=== PATIENT | male | born 1980 | race African-American/Black ===

== ENCOUNTER 2022-12-31 20:09 | Inpatient (IN) | payer OTHER, SELFPAY ==
[2022-12-31 20:34] VITALS: BP 125/74; PULSE 74; RESP 16; TEMP 36.1; O2SAT 99
[2022-12-31] MEDS: hydrOXYzine HCL 50 MG TABLET PO (21:24)
[2022-12-31] MEDS: Melatonin 3 MG TABLET 6 MG PO (21:25)
[2022-12-31 21:59] VITALS: BMI 27.0
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
[2023-01-01 08:00] VITALS: BP 117/64; PULSE 68; RESP 18; TEMP 36.5; O2SAT 99
[2023-01-01] MEDS: hydrOXYzine HCL 50 MG TABLET PO ×2 (09:08→20:18)
--- NOTE | 2023-01-01 09:55 | P.HPPS_ITS ---
HPI Date of Service: 01/01/23 Chief Complaint: AH Sources of Information: patient interviewed, chart reviewed and crisis/core team assessment reviewed HPI Subjective Notes: Lopez Warning and Conditional Voluntary Narrative: Patient is a 42-year-old male with history of undiagnosed bipolar disorder, PTSD and occasional substance abuse who presents for auditory hallucinations that started 7 months ago and have been steadily worsening to the point where patient has become suicidal. Patient reports that auditory hallucinations started for t he 1st time about 7 months ago but were minimal; however they have been increasing and over the past couple months of gotten much worse. Patient has been hesitant to tell anyone, feeling embarrassed. 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 Patient finally told his mother who reports family history of AH. Patient reports he rarely uses cocaine but recently did so just to get relief; admitted to superficial self-harm 1 time as a coping tool. Patient knows the voices are not real and wants help and very open to medication. Patient also has a history of struggling on/off with depression however he denies that AH started during any depressive episode and are unrelated. Patient endorses hypomanic episodes which are also independent of AH; they occur about twice a month, last about 3-4 days during which time he gets little sleep, is hyperactive (though he remains very efficient with work), talking fast, racing mind, hypersexual and spending money on things he does not need, such as clothes/jewelry which he ends up returning; he says he has not slept much in the past 5 days however he says he is very tired and wants to sleep and says this back out of insomnia is not typical for his manic episodes. Patient has a history of childhood trauma but says he has worked through his PTSD in therapy. Only occasionally alcohol use. 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 Patient was dating a woman who moved to [place] and never told him she was ; about 5 years ago she developed end-stage breast cancer, returned with their 15-year-old son whom patient met for the 1st time. They ; she and he has been raising his son since. Son recently moved back to [place] Substance History: History of substance abuse and detox x1 at [facility]; patient reports he only seldom uses alcohol or cocaine; smokes cannabis 1 to 2 times a week Trauma History: Childhood trauma Diagnostics Vital Signs (24Hr): Vital Signs - 24 hr 12/31/22 20:34 01/01/23 08:00 Temperature 97 F 97.7 F Pulse Rate 74 68 Respiratory Rate 16 18 Blood Pressure 125/74 117/64 Pulse Oximetry 99 99 Oxygen Delivery Method Room Air Room Air BMI result Body Mass Index 27.0 Labs 01/01/23 09:12 Meds/Allergies Allergies Allergies Allergy/AdvReac Type Severity Reaction Status Date / Time naltrexone Allergy Hives Verified 12/31/22 21:26 Mental Status Exam Mental Status Exam Narrative: Pt is alert and oriented; behavior is cooperative, friendly and calm; patient is in emotional distress; dressed in hospital attire, well groomed; mood is described as irritable and affect constricted; eye contact appropriate; Speech is normal rate, volume and prosody and not pressured; no psychomotor agitation/retardation present; thought process is organized and goal directed; Thought content is on tx and dealing with AH; otherwise pertinent to relevant topics and without any delusional content, paranoid ideations or grandiosity; p ositive for SI due to no relief from AH; no HI. Positive for AH Patients insight and judgment appear impaired Assessment & Plan Assessment & Plan (1) Schizoaffective disorder: Status: Acute Code(s): F25.9 - Schizoaffective disorder, unspecified Plan Patient is a 42-year-old male with history of undiagnosed bipolar disorder, PTSD and occasional substance abuse who presents for auditory hallucinations that started 7 months ago and have been steadily worsening to the point where patient has become suicidal. -patient has undiagnosed bipolar disorder. despite history of both depressive and hypomanic episodes, AH remains independent of mood. Patient has history of trauma however says PTSD symptoms remain resolved with therapy. -while it is unusual for someone to 1st developed psychotic symptoms at 41 years old they have been steadily worsening over 7 months which sounds like typical prodrome; no clear trigger; patient also biologically loaded. Will provisionally diagnosed with schizoaffective disorder. -since AH is independent of manic episodes and antipsychotics can also act as a mood stabilizer will start patient on Risperdal; Leaf Stripper reviewed medications risks/side effects of Risperdal including but not limited to galactorrhea and TD which patient understood and wants to continue with. Plan: CV Q 15 minutes checks Start Risperdal 1 mg b.i.d. Will add Risperdal 0.5 mg b.i.d. p.r.n. for breakthrough psychotic symptoms Will consider traditional mood stabilizer since patient has frequent hypomanic episodes; however Risperdal may eliminate these Collateral Milieu treatment Patient educated on: diagnosis, medication risk/benefits, substance abuse and therapeutic strategies Informed Consent: understands Reason for continued inpatient stay Substantial Risk for: harm to self Statement Statement: I have reviewed the history and physical and performed a pertinent examination on my patient. No changes have occurred unless specified. If the History and Physical was not performed prior to admission, the Hospitalist's service will be consulted for completing the admission physical. Time Spent With Patient Time: Total time managing care of this patient today ____ minutes.
[2023-01-01 10:31] LABS: Alanine Aminotransferase 26 U/L (0-40); Albumin Level 3.8 g/dL (3.5-5.0); Alkaline Phosphatase 57 U/L (39-117); Anion Gap 9 (12-20); Aspartate Amino Transferase 22 U/L (5-37); Bilirubin Total 0.7 mg/dL (0.0-1.0); Blood Urea Nitrogen 12 mg/dL (9-16); Calcium 9.1 mg/dL (8.4-10.2); Carbon Dioxide 27 mmol/L (22-29); Chloride 106 mmol/L (96-108); Cholesterol 141 mg/dL; Creatinine Clr Calc Pharmacy 118.1; Estimated Glomerular Filt Rate > 60; Glucose Fasting 91 mg/dL (60-99); HDL Cholesterol 42 mg/dL; LDL Cholesterol Calculated 84 mg/dl; Potassium 4.4 mmol/L (3.3-5.1); Sodium 138 mmol/L (135-145); Total Protein 6.1 g/dL (6.5-8.0); Triglycerides 76 mg/dL
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
[2023-01-01] MEDS: risperiDONE 1 MG TABLET PO ×2 (13:35→21:35)
[2023-01-01 16:34] LABS: Estimated Average Glucose 100 mg/dL; Hemoglobin A1c % 5.1 %
[2023-01-01] MEDS: Melatonin 3 MG TABLET 6 MG PO (21:34)
[2023-01-01 21:37] VITALS: BP 133/74; PULSE 82; TEMP 36.7; O2SAT 100
[2023-01-02 07:00] VITALS: BMI 26.2
[2023-01-02 08:56] VITALS: BP 104/55; PULSE 76; TEMP 36.7; O2SAT 98
[2023-01-02] MEDS: hydrOXYzine HCL 50 MG TABLET PO (09:21)
[2023-01-02] MEDS: risperiDONE 1 MG TABLET PO ×2 (09:22→21:41)
--- NOTE | 2023-01-02 09:32 | P.PNPSI_ITS ---
Subjective Subjective Date of Service: 01/02/23 Reason For Visit: AH Interim History: With patient; discussed with team Patient reports that voices are subtle...almost none... Which he is very happy about. Denies medication side effects. 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 Discussed manic episodes and the possibility that Risperdal could help stabilize however too early to tell. Mental Status Exam Mental Status Exam Narrative: Pt is alert and oriented; behavior is cooperative, friendly and calm; patient not in distress; dressed in hospital attire, well groomed; mood is described as better and affect congruent; eye contact appropriate; Speech is normal rate, volume and prosody and not pressured; no psychomotor agitation/retardation present; thought process is organized and goal directed; Thought content is on tx and dealing with AH; otherwise pertinent to relevant topics and without any delusional content, paranoid ideations or grandiosity; no SI/HI. AH significantly diminished. Patients insight and judgment fair. Diagnostics Vital Signs (24Hr): Vital Signs - 24 hr 01/01/23 21:37 01/02/23 08:56 Temperature 98.1 F 98.1 F Pulse Rate 82 76 Blood Pressure 133/74 104/55 L Pulse Oximetry 100 98 Oxygen Delivery Method Room Air Room Air BMI result Body Mass Index 26.2 Labs 01/01/23 09:12 Labs: Laboratory Results - last 48 hr 01/01/23 01/01/23 09:12 15:48 Sodium 138 Potassium 4.4 Chloride 106 Carbon Dioxide 27 Anion Gap 9 L BUN 12 Creatinine 0.93 Estim Creat Clear Calc 118.1 Estimated GFR > 60 Fasting Glucose 91 Estimat Average Glucose 100 Hemoglobin A1c % 5.1 Calcium 9.1 Total Bilirubin 0.7 AST 22 ALT 26 Alkaline Phosphatase 57 Total Protein 6.1 L Albumin 3.8 Triglycerides 76 Cholesterol 141 LDL Cholesterol, Calc 84 HDL Cholesterol 42 Medications Medications Current Medications Acetaminophen (Acetaminophen 325 Mg Tablet) 650 mg PO Q6H PRN PRN Reason: Headache/Pain Mild Scale (1-3) Al Hydroxide/Mg Hydroxide (Magnesium Hydrox/Alum Hydrox 30 Ml Oral.Susp) 30 ml PO Q6H PRN PRN Reason: Heartburn/Nausea Hydroxyzine HCl (Hydroxyzine Hcl 50 Mg Tablet) 50 mg PO Q6H PRN PRN Reason: Anxiety Last Admin: 01/02/23 09:21 Dose: 50 mg Magnesium Hydroxide (Milk Of Magnesia 30 Ml Oral.Susp) 30 ml PO DAILY PRN PRN Reason: Constipation Melatonin (Melatonin 3 Mg Tablet) 6 mg PO BEDTIME RAZIA Last Admin: 01/01/23 21:34 Dose: 6 mg Risperidone (Risperidone 1 Mg Tablet) 1 mg PO BID RAZIA Last Admin: 01/02/23 09:22 Dose: 1 mg Risperidone (Risperidone 0.5 Mg Tablet) 0.5 mg PO BID PRN PRN Reason: AH/psychosis Trazodone HCl (Trazodone Hcl 50 Mg Tablet) 50 mg PO BEDTIME MRX1 PRN PRN Reason: Insomnia Allergies Allergies Allergy/AdvReac Type Severity Reaction Status Date / Time naltrexone Allergy Hives Verified 12/31/22 21:26 Assessment & Plan Assessment & Plan (1) Schizoaffective disorder: Status: Acute Code(s): F25.9 - Schizoaffective disorder, unspecified Plan Patient is a 42-year-old male with history of undiagnosed bipolar disorder, PTSD and occasional substance abuse who presents for auditory hallucinations that started 7 months ago and have been steadily worsening to the point where patient has become suicidal. -patient has undiagnosed bipolar disorder. despite history of both depressive and hypomanic episodes, AH remains independent of mood. Patient has history of trauma however says PTSD symptoms remain resolved with therapy. -while it is unusual for someone to 1st developed psychotic symptoms at 41 years old they have been steadily worsening over 7 months which sounds like typical prodrome; no clear trigger; patient also biologically loaded. Will provisionally diagnosed with schizoaffective disorder. -since AH is independent of manic episodes and antipsychotics can also act as a mood stabilizer will start patient on Risperdal; Patent Law Specialist reviewed medications risks/side effects of Risperdal including but not limited to galactorrhea and TD which patient understood and wants to continue with. Hospital course: 01/02 patient reports auditory hallucinations significantly reduced and subtle, almost to none. Feeling much better. Sleepy which may be due to medication or recent 5 days of insomnia. Plan: CV Q 15 minutes checks Continue Risperdal but will moved to bedtime dosing 1 mg b.i.d. Will add Risperdal 0.5 mg b.i.d. p.r.n. for breakthrough psychotic symptoms Will consider traditional mood stabilizer since patient has frequent hypomanic episodes; however Risperdal may eliminate these Collateral Milieu treatment Patient educated on: diagnosis and medication risk/benefits Informed Consent: understands Reason for continued inpatient stay Substantial Risk for: rapid decompensation Time Spent With Patient Time: Total time managing care of this patient today ____ minutes.
[2023-01-02 11:59] LABS: Cholesterol 151 mg/dL; HDL Cholesterol 42 mg/dL; LDL Cholesterol Calculated 91 mg/dl; Triglycerides 92 mg/dL
[2023-01-02 13:01] LABS: Reflex LDLD? No
[2023-01-02 20:15] VITALS: BP 131/82; PULSE 86; RESP 18; TEMP 36.7; O2SAT 98
[2023-01-02] MEDS: Melatonin 3 MG TABLET 6 MG PO (21:41)
[2023-01-03 10:45] VITALS: BP 133/69; PULSE 105; RESP 18; TEMP 36.6; O2SAT 95
--- NOTE | 2023-01-03 11:29 | PM.PSYDC ---
DS: Providers Provider Date of Service: 01/03/23 Date of admission: 12/31/22 20:09 Primary care physician: Unknown Physician Consults: 12/31/22 20:57 Consult to Hospitalist Routine Comment: Consulting Provider: Hospitalist Reason For Exam: Direct admission DS: Diagnosis Discharge Diagnosis (1) Schizoaffective disorder: Status: Acute DS: Medications Discharge Medications Home Medications: Previous Rx's Medication Instructions Recorded melatonin 3 mg tablet 6 mg PO BEDTIME #60 tabs 01/03/23 risperidone 2 mg tablet 2 mg PO BEDTIME #30 tabs 01/03/23 Mental Status Exam Mental Status Exam Narrative: Pt is alert and oriented; behavior is cooperative, friendly and calm; patient not in distress; dressed in hospital attire, well groomed; mood is described as better and affect congruent; eye contact appropriate; Speech is normal rate, volume and prosody and not pressured; no psychomotor agitation/retardation present; thought process is organized and goal directed; Thought content is on tx and dealing with AH; otherwise pertinent to relevant topics and without any delusional content, paranoid ideation or grandiosity; no SI/HI. Pt denies VH/AH. Patients insight and judgment fair. Data Data Completed and Pending Completed studies during hospitalization [Text1]: 01/01/23 01/01/23 01/02/23 09:12 15:48 09:19 Sodium 138 Potassium 4.4 Chloride 106 Carbon Dioxide 27 Anion Gap 9 L BUN 12 Creatinine 0.93 Estim Creat Clear Calc 118.1 Estimated GFR > 60 Fasting Glucose 91 Estimat Average Glucose 100 Hemoglobin A1c % 5.1 Calcium 9.1 Total Bilirubin 0.7 AST 22 ALT 26 Alkaline Phosphatase 57 Total Protein 6.1 L Albumin 3.8 Triglycerides 76 92 Cholesterol 141 151 LDL Cholesterol, Calc 84 91 HDL Cholesterol 42 42 DS: Summary Hospital Course Hospital Course: Patient is a 42-year-old male with history of undiagnosed bipolar disorder, PTSD and occasional substance abuse who presents for auditory hallucinations that started 7 months ago and have been steadily worsening to the point where patient has become suicidal. Patient reports that auditory hallucinations started for the 1st time about 7 months ago but were minimal; however they have been increasing and over the past couple months of gotten much worse.? Patient has been hesitant to tell anyone, feeling embarrassed.? 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 Patient finally told his mother who reports family history of AH.? Patient reports he rarely uses cocaine but recently did so just to get relief; admitted to superficial self-harm 1 time as a coping tool.? Patient knows the voices are not real and wants help and very open to medication.? Patient also has a history of struggling on/off with depression however he denies that AH started during any depressive episode and are unrelated.? Patient endorses hypomanic episodes which are also independent of AH; they occur about twice a month, last about 3-4 days during which time he gets little sleep, is hyperactive (though he remains very efficient with work), talking fast, racing mind, hypersexual and spending money on things he does not need, such as clothes/jewelry which he ends up returning; he says he has not slept much in the past 5 days however he says he is very tired and wants to sleep and says this back out of insomnia is not typical for his manic episodes.? Patient has a history of childhood trauma but says he has worked through his PTSD in therapy.? Only occasionally alcohol use. Past Psychiatric History: Past psych admissions for PtSD at [facility] 2015; [facility] 2016; another admission 2017 (reports he works through PTSD/trauma with medication and therapy) November 2022 crisis eval Medical Evaluation Reviewed: Hospitalist Manuel Pending HOSPITAL COURSE On the unit, pt was admitted on a CV and placed on 15 minutes checks for safety. Pt was assigned under the care of Dr. Yomi Lamas. After discussing risks, benefits and alternative treatment options, pt agreed to start risperidone. Pt tolerated well this medication which was titrated to 2mg po qhs. Pt gradually presented as less labile. Less talkative. He denied hearing voices. No overt delusional content noted or reported. No signs of aggression towards self or others. No need for restraints. He denied SI/HI throughout this admission. Status at Discharge Cognitive/behavioral status at discharge: Pt with brighter, non labile affect. No SI/HI. No overt psychosis or delusions. Pt sleeping and eating well. Future oriented. No signs of aggression towards self or others. Functional status at discharge: independent ambulation Overall status at discharge: patient is progressing back to baseline Time Spent with Patient Time attestation: Total time managing care of this patient today _30___ minutes. Time spent: Greater than 30 minutes Discharge Plan Discharge Anticipated Discharge Date/Time: 01/03/23 11:16 Patient Disposition: Home, Self-Care Discharge Diagnosis: schizoaffective Referrals: Physician,Unknown J [Primary Care Provider] - 1 Week Discharge Medications: New melatonin 3 mg Tablet 6 mg PO BEDTIME Qty: 60 0RF risperidone 2 mg Tablet 2 mg PO BEDTIME Qty: 30 0RF Discharge Orders: Discharge Order (Routine); Ordered 01/03/23 Ordered By: Nicol Zamorano Diet: Regular diet Activity on Discharge: As tolerated Stand Alone Forms: Patient Portal Discharge page Care Plan Goals: 1. Maintain mood 2. No SI/HI 3. No psychosis or delusions Health Concerns: Follow up PCP for routine care Plan of Treatment: 1. Take medications as prescribed 2. Go to nearest ED or call 911 Assessment: Pt with bright, not overly expansive. No psychosis/delusions. Pt sleeping well. No signs of aggression towards self or others. No SI/HI.
== END 2023-01-03 13:35 | disposition home or self-care (01) | DRG 750 ==
PROVIDERS: Psychiatry & Neurology Psychiatry; Admitting Provider Psychiatry & Neurology Psychiatry; Visit Provider Social Worker
DX: F25.9 Schizoaffective disorder, unspecified (principal); F43.10 Post-traumatic stress disorder, unspecified; H50.89 Other specified strabismus; H55.09 Other forms of nystagmus; Z79.899 Other long term (current) drug therapy; Z87.891 Personal history of nicotine dependence
CPT/HCPCS: 36415; 80053; 80061; 83036

== ENCOUNTER 2023-06-02 18:51 | Inpatient (IN) | payer OTHER, SELFPAY ==
[2023-06-02 22:01] VITALS: BMI 27.1
--- NOTE | 2023-06-03 01:14 | PC.ADMIT ---
Patient is a 42 year old male admitted as a CV admission to at 1910, 06/02/23 and placed on 15 minute safety checks. Patient was a transfer from [facility] ED. He was medically cleared and evaluated by the team at [facility] and deemed in need of IPLOC secondary to SI, depression and his SI plan was to overdose on substances. He has been on M3 at [facility]. His stressors seemed to be related to the recent of his partner 2 months ago and the of his grandmother 06/02/23. Patient said he drank alcohol, used marijuana and cocaine in an attempt to cope with his feelings. During the admission process, patient was pleasant and able to answer admission questions, sign legals and do the safety tool. He did not rate his anxiety and depression, but did state both are high . No current SI, feels safe on the unit. He did mention his Hydroxyzine should be 50 mg q 6 hours, prn anxiety. He also said he is allergic to Morphine and is not allergic to Naltrexone. Nicol Zamorano APRN aware of admission. Orders received. Patient said he was very tired and does not have any active SI Patient was asleep and did not received his Melatonin, night staff aware.
[2023-06-03 07:55] VITALS: BP 132/81; PULSE 61; RESP 18; TEMP 35.9; O2SAT 100
[2023-06-03] MEDS: hydrOXYzine HCL 25 MG TABLET PO ×2 (08:58→16:20)
[2023-06-03] MEDS: buPROPion HCl XL 150 MG TAB.ER.24H PO (08:58)
[2023-06-03 09:34] LABS: Alanine Aminotransferase 21 U/L (0-40); Albumin Level 4.2 g/dL (3.5-5.0); Alkaline Phosphatase 61 U/L (39-117); Anion Gap 12 (12-20); Aspartate Amino Transferase 24 U/L (5-37); Bilirubin Total 0.7 mg/dL (0.0-1.0); Blood Urea Nitrogen 13 mg/dL (9-16); Calcium 9.3 mg/dL (8.4-10.2); Carbon Dioxide 24 mmol/L (22-29); Chloride 106 mmol/L (96-108); Cholesterol 154 mg/dL (<200); Creatinine Clr Calc Pharmacy 115.1; Estimated Glomerular Filt Rate > 60; Glucose Fasting 91 mg/dL (60-99); HDL Cholesterol 50 mg/dL (>40); LDL Cholesterol Calculated 90 mg/dL (<100); Potassium 4.4 mmol/L (3.3-5.1); Sodium 138 mmol/L (135-145); Total Protein 6.9 g/dL (6.5-8.0); Triglycerides 73 mg/dL (<150)
[2023-06-03 09:37] LABS: Estimated Average Glucose 100 mg/dL; Hemoglobin A1c % 5.1 % (<6.0)
[2023-06-03 09:49] LABS: Thyroid Stimulating Hormone 1.07 uIU/mL (0.32-4.0)
--- NOTE | 2023-06-03 14:01 | P.CONHOSP_ITS ---
History of Present Illness Data of Consult Service Date: 06/03/23 Requesting physician: Yomi Lamas Primary Care Provider: Salome Hatch NP HPI Reason for consult: medical H&P 43-year-old male with history of polysubstance abuse who is a current 3 cigarette per day smoker admitted to Psychiatry consult placed hospitalist service for medical H&P. ED records reviewed. Hematology studies unremarkable, renal function electrolyte levels normal. Urine tox screen positive for cocaine, cannabinoids. He states he had been in sustained remission from his substance abuse but recently found out about the loss of several people close to him and relapsed for 1 night with alcohol, cocaine, marijuana. He has no complaints at this time. Review of Systems 2 Review of Systems: General: No fevers, malaise, unintentional weight loss HEENT: No blurred vision, diplopia. No sore throat, nasal congestion, rhinorrhea, sinus pain, ear pain Cardiovascular: No chest pain, palpitations, or leg edema Respiratory: No shortness of breath, wheezing, cough GI: No abdominal pain, nausea, vomiting, diarrhea, constipation, melena, hematochezia : No dysuria, hematuria, increased urinary frequency, decreased urinary output MSK: No myalgia, back pain Neuro: No headaches, weakness, paresthesias Skin: No rashes or lesions PMFSH Medical History Polysubstance abuse Social History Household Members: None Housing: House Do you presently have visiting nurse or other home services: No Patient Tobacco Use Status: Former Tobacco user Quit Date: 5 years ago Years Smoked: 12 Second Hand Smoke Exposure: Yes Substance Use Type: Crack/Cocaine, Marijuana and Caffiene Substance Use Frequency: Socially Last Used Substance: Just Prior to Admission Currently Displaying Signs/Symptoms of Drug Intoxication Withdrawal: No Any prior treatment program specific to substance use: Yes Have you been hit, kicked, punched, or otherwise hurt by someone within the past year? If so, by whom?: No Do you feel safe in your current relationship?: No Current Relationship Is there a partner from a previous relationship who is making you feel unsafe now?: No Are you made to feel afraid or neglected: No Spiritual Healthcare Practices: n//a Gnosticist Healthcare Practices: n/a Cultural Healthcare Practices: n/a Advance Directives: No Advance Directives Information Provided: No Do you have thoughts of harming others: None Do you have a plan to hurt others: No Plan Recently lost weight without trying: No Eating poorly because of decreased appetite: No Nutrition Risks: No Nutritional Risk Poor oral hygiene: No service: No Sexual orientation: Straight/Heterosexual Meds Allergies Allergy/AdvReac Type Severity Reaction Status Date / Time naltrexone Allergy Hives Verified 12/31/22 21:26 Active Medications: Current Medications Acetaminophen (Acetaminophen 325 Mg Tablet) 650 mg PO Q6H PRN PRN Reason: Headache/Pain Mild Scale (1-3) Al Hydroxide/Mg Hydroxide (Magnesium Hydrox/Alum Hydrox 30 Ml Oral.Susp) 30 ml PO Q6H PRN PRN Reason: Heartburn/Nausea Bupropion HCl (Bupropion Hcl Xl 150 Mg Tab.Er.24h) 150 mg PO DAILY [facility] Last Admin: 06/03/23 08:58 Dose: 150 mg Hydroxyzine HCl (Hydroxyzine Hcl 25 Mg Tablet) 25 mg PO Q6H PRN PRN Reason: Anxiety Last Admin: 06/03/23 08:58 Dose: 25 mg Magnesium Hydroxide (Milk Of Magnesia 30 Ml Oral.Susp) 30 ml PO DAILY PRN PRN Reason: Constipation Melatonin (Melatonin 3 Mg Tablet) 9 mg PO BEDTIME [facility] Last Admin: 06/02/23 23:29 Dose: Not Given Trazodone HCl (Trazodone Hcl 50 Mg Tablet) 50 mg PO BEDTIME MRX1 PRN PRN Reason: Insomnia Home Medications Medication Instructions Recorded Confirmed Last Taken Type bupropion HCl 150 mg 24 hr tablet, 150 mg PO DAILY 06/02/23 06/02/23 06/02/23 History extended release 0900 hydroxyzine pamoate 25 mg PO QID PRN Anxiety 06/02/23 06/02/23 06/01/23 21:00 History melatonin 3 mg tablet 9 mg PO BEDTIME 06/02/23 06/02/23 05/31/23 21:00 History Physical Exam 2 Vital Signs and Narrative: Vital Signs: Last Vital Signs Temp 96.7 F L 06/03/23 07:55 Pulse 61 06/03/23 07:55 Resp 18 06/03/23 07:55 BP 132/81 06/03/23 07:55 Pulse Ox 100 06/03/23 07:55 O2 Del Method Room Air 06/03/23 07:55 BMI result Body Mass Index 27.1 Constitutional - Awake and Alert, No apparent distress Eyes - PERRLA, EOMI Cardiovascular - S1S2, RRR, No edema Respiratory - Normal lung expansion, Normal respiratory effort, No respiratory distress, CTA bilaterally Gastrointestinal - NT / ND; +BS; No rebound or guarding Extremities - no calf tenderness bilaterally, no swelling Musculoskeletal - Normal inspection, normal ROM Skin - Warm/Dry Neurological - Alert & oriented x3, right sided CN palsy, otherwise CN II-XII in tact, 5/5 strength BUE and BLE Psychological - Appropriate affect Results Labs 06/03/23 08:16 Labs: Laboratory Results - last 24 hr 06/03/23 08:16 Anion Gap 12 Estim Creat Clear Calc 115.1 Estimated GFR > 60 Fasting Glucose 91 Estimat Average Glucose 100 Hemoglobin A1c % 5.1 Calcium 9.3 Total Bilirubin 0.7 AST 24 ALT 21 Alkaline Phosphatase 61 Total Protein 6.9 Albumin 4.2 Triglycerides 73 Cholesterol 154 LDL Cholesterol, Calc 90 HDL Cholesterol 50 Vitamin B12 Cancelled Folate Cancelled TSH 1.07 Assessment and Plan (1) Routine medical exam: Status: Acute Plan 43-year-old male with history of polysubstance abuse who is a current 3 cigarette per day smoker admitted to Psychiatry consult placed hospitalist service for medical H&P. 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 Signing off at this time. Please do not hesitate to call for further questions. Time Spent With Patient Time: Total time managing care of this patient today ____ minutes.
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
[2023-06-03 18:00] VITALS: BP 141/77; PULSE 74; RESP 18; TEMP 36.2; O2SAT 99
[2023-06-03] MEDS: Melatonin 3 MG TABLET 9 MG PO (20:55)
[2023-06-04 08:32] VITALS: BP 111/63; PULSE 59; RESP 16; TEMP 36.7; O2SAT 97
[2023-06-04] MEDS: Acetaminophen 325 MG TABLET 650 MG PO (08:54)
[2023-06-04] MEDS: hydrOXYzine HCL 25 MG TABLET PO ×2 (08:54→17:14)
[2023-06-04] MEDS: buPROPion HCl XL 150 MG TAB.ER.24H PO (08:57)
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
[2023-06-04 17:05] VITALS: BP 148/74; PULSE 69; RESP 16; TEMP 36.2; O2SAT 99
[2023-06-04] MEDS: Melatonin 3 MG TABLET 9 MG PO (21:00)
[2023-06-05 07:00] VITALS: BMI 26.4
[2023-06-05] MEDS: buPROPion HCl XL 150 MG TAB.ER.24H PO (08:26)
[2023-06-05 09:33] VITALS: BP 119/66; PULSE 58; RESP 16; TEMP 36.3; O2SAT 98
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
[2023-06-05] MEDS: hydrOXYzine HCL 25 MG TABLET PO (13:18)
[2023-06-05 18:00] VITALS: BP 131/80; PULSE 77; TEMP 35.6; O2SAT 98
[2023-06-05] MEDS: Melatonin 3 MG TABLET 9 MG PO (20:06)
[2023-06-06 08:27] VITALS: BP 122/74; PULSE 68; RESP 16; TEMP 36.5; O2SAT 100
[2023-06-06] MEDS: buPROPion HCl XL 150 MG TAB.ER.24H PO (08:37)
[2023-06-06] MEDS: hydrOXYzine HCL 25 MG TABLET PO (08:37)
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
[2023-06-06 17:10] VITALS: BP 126/82; PULSE 71; RESP 16; TEMP 36.7; O2SAT 100
[2023-06-06] MEDS: Melatonin 3 MG TABLET 9 MG PO (19:51)
[2023-06-07 08:00] VITALS: BP 113/64; PULSE 70; RESP 16; TEMP 36.5; O2SAT 99
[2023-06-07] MEDS: buPROPion HCl XL 150 MG TAB.ER.24H PO (08:47)
[2023-06-07] MEDS: hydrOXYzine HCL 25 MG TABLET PO ×2 (08:49→18:02)
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
[2023-06-07 16:39] VITALS: BP 147/82; PULSE 86; RESP 16; TEMP 36.2; O2SAT 99
[2023-06-07] MEDS: Melatonin 3 MG TABLET 9 MG PO (20:00)
[2023-06-07] MEDS: traZODone HCL 50 MG TABLET PO (21:45)
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
[2023-06-08 08:11] VITALS: BP 116/66; PULSE 66; RESP 16; TEMP 36.6; O2SAT 99
[2023-06-08] MEDS: buPROPion HCl XL 150 MG TAB.ER.24H PO (08:32)
[2023-06-08] MEDS: hydrOXYzine HCL 25 MG TABLET PO ×2 (08:33→14:56)
[2023-06-08 16:36] VITALS: BP 135/72; PULSE 83; RESP 16; TEMP 36.2; O2SAT 100
[2023-06-08] MEDS: Melatonin 3 MG TABLET 9 MG PO (22:29)
[2023-06-09 08:00] VITALS: BP 133/65; PULSE 68; RESP 18; TEMP 36.1; O2SAT 100
[2023-06-09] MEDS: buPROPion HCl XL 150 MG TAB.ER.24H PO (08:22)
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
== END 2023-06-09 10:25 | DRG 751 ==
PROVIDERS: Social Worker; Admitting Provider Psychiatry & Neurology Psychiatry; PCP Nurse Practitioner Family; Visit Provider Clinical Nurse Specialist Psychiatric/Mental Health, Adult
DX: F33.9 Major depressive disorder, recurrent, unspecified (principal); H49.21 Sixth [abducent] nerve palsy, right eye; R45.851 Suicidal ideations; F43.10 Post-traumatic stress disorder, unspecified; F17.210 Nicotine dependence, cigarettes, uncomplicated; Z71.6 Tobacco abuse counseling; Z62.810 Personal history of physical and sexual abuse in childhood; Z79.899 Other long term (current) drug therapy
CPT/HCPCS: 36415; 80053; 80061; 82607; 82746; 83036; 84443

== ENCOUNTER → 2023-06-02 18:51 | Outpatient (BNV) | payer OTHER, SELFPAY | PROVIDERS: Admitting Provider Psychiatry & Neurology Psychiatry; PCP Nurse Practitioner Family; Visit Provider Psychiatry & Neurology Psychiatry | DX: F33.2 Major depressive disorder, recurrent severe without psychotic features (principal); F43.11 Post-traumatic stress disorder, acute; F19.90 Other psychoactive substance use, unspecified, uncomplicated | CPT/HCPCS: 99232 ==

== ENCOUNTER → 2023-06-02 18:51 | Outpatient (BNV) | payer OTHER, SELFPAY | PROVIDERS: Admitting Provider Psychiatry & Neurology Psychiatry; PCP Nurse Practitioner Family; Visit Provider Physician Assistant | DX: Z02.2 Encounter for examination for admission to residential institution (principal) | CPT/HCPCS: 99429 ==

== ENCOUNTER → 2023-06-02 18:51 | Outpatient (BNV) | payer OTHER, SELFPAY | PROVIDERS: Admitting Provider Psychiatry & Neurology Psychiatry; PCP Nurse Practitioner Family; Visit Provider Clinical Nurse Specialist Psychiatric/Mental Health, Adult | DX: F33.2 Major depressive disorder, recurrent severe without psychotic features (principal); F43.11 Post-traumatic stress disorder, acute; F19.90 Other psychoactive substance use, unspecified, uncomplicated | CPT/HCPCS: 99231; 99232 ==

== ENCOUNTER 2023-07-30 00:05 | Inpatient (IN) | payer OTHER, SELFPAY ==
[2023-07-30 00:30] VITALS: BP 135/60; PULSE 86; RESP 14; TEMP 36.4; O2SAT 99; BMI 23.5
[2023-07-30] MEDS: hydrOXYzine HCL 25 MG TABLET PO ×3 (01:25→17:28)
--- NOTE | 2023-07-30 03:26 | PC.ADMIT ---
this is one of several [facility] admissions for this 43 year old male. legal CV. dx: MDD, polysubstance use d/o. patient was a referral from [facility]. nurse to nurse, collateral information obtained prior to admission. hospitalist notified of need for h+p. skin assessment completed. was at [facility] for several days s/p OD on street drugs including cocaine and fentanyl. reports this was an attempted to end his life. reports experiencing depressive symptoms with SI thinking for several weeks. when asked about receiving narcan and being saved by a by stander stated ''I'm glad it wasn't successful'' patient with + provider relationship. no medical issues noted. oriented to unit. safety tool completed, treatment plan initiated. medication reconciliation done, patient will need to speak with medication prescriber as it appears he takes medications differently then prescribed. is on wellbutrin, hydroxyzine, melatonin.
[2023-07-30] MEDS: buPROPion HCl XL 150 MG TAB.ER.24H PO (08:13)
[2023-07-30 08:20] VITALS: BP 105/55; PULSE 78; RESP 14; TEMP 36.4; O2SAT 97
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
[2023-07-30 18:00] VITALS: BP 116/64; PULSE 100; TEMP 36.4; O2SAT 98
[2023-07-30] MEDS: Melatonin 3 MG TABLET 9 MG PO (20:38)
[2023-07-31] MEDS: buPROPion HCl XL 150 MG TAB.ER.24H PO (08:24)
[2023-07-31] MEDS: hydrOXYzine HCL 25 MG TABLET PO ×2 (08:24→17:54)
[2023-07-31 09:06] LABS: Alanine Aminotransferase 27 U/L (0-40); Albumin Level 4.1 g/dL (3.5-5.0); Alkaline Phosphatase 53 U/L (39-117); Anion Gap 11 (12-20); Aspartate Amino Transferase 22 U/L (5-37); Bilirubin Total 0.3 mg/dL (0.0-1.0); Blood Urea Nitrogen 14 mg/dL (9-16); Calcium 9.5 mg/dL (8.4-10.2); Carbon Dioxide 28 mmol/L (22-29); Chloride 105 mmol/L (96-108); Cholesterol 178 mg/dL (<200); Creatinine Clr Calc Pharmacy 119.5; Estimated Glomerular Filt Rate > 60; Glucose Fasting 103 mg/dL (60-99); HDL Cholesterol 51 mg/dL (>40); LDL Cholesterol Calculated 95 mg/dL (<100); Potassium 4.5 mmol/L (3.3-5.1); Sodium 139 mmol/L (135-145); Total Protein 7.4 g/dL (6.5-8.0); Triglycerides 163 mg/dL (<150)
--- NOTE | 2023-07-31 09:21 | HO.PSYCHPN ---
Subjective Subjective Date of Service: 07/31/23 Reason For Visit: Depression, opioid use disorder Subjective Notes: Conditional Voluntary Interim History: Reviewed with . Patient reports feeling alright today; presents calm and friendly during 1:1. Patient stated, I'm taking this time to get myself together. I work six days a week. I'm hoping to get into a program to get some help . denies SI/HI/VH/AH. Medication Compliance: Yes Side effects from medications: No Review of Systems Constitutional: Reports as per HPI Eyes: Reports as per HPI Reports as per HPI Cardiovascular: Reports as per HPI Respiratory: Reports as per HPI Gastrointestinal: Reports as per HPI Genitourinary: Reports as per HPI Musculoskeletal: Reports as per HPI Skin/Breast: Reports as per HPI Reports as per HPI Psychiatric: Reports as per HPI Endocrine: Reports as per HPI Hematologic/Lymphatic: Reports as per HPI Allergic/Immunologic: Reports as per HPI Mental Status Exam Mental Status Exam Narrative: Pt is alert and oriented; behavior is cooperative, friendly and calm; dressed in casual attire with unkempt hair but adequate hygiene; mood is described as good ; eye contact appropriate; Speech is normal rate, volume and prosody and not pressured; thought process is organized and goal directed; Thought content is on tx; otherwise pertinent to relevant topics and without any delusional content, paranoid ideations or grandiosity; denies SI/HI. There is no evidence of perceptual disturbance. Diagnostics Vital Signs (24Hr): Vital Signs - 24 hr 07/30/23 18:00 Temperature 97.6 F Pulse Rate 100 Blood Pressure 116/64 Pulse Oximetry 98 Oxygen Delivery Method Room Air BMI result Body Mass Index 23.5 Labs 07/31/23 08:32 Labs: Laboratory Results - last 48 hr 07/31/23 08:32 Sodium 139 Potassium 4.5 Chloride 105 Carbon Dioxide 28 Anion Gap 11 L BUN 14 Creatinine 0.91 Estim Creat Clear Calc 119.5 Estimated GFR > 60 Fasting Glucose 103 H Calcium 9.5 Total Bilirubin 0.3 AST 22 ALT 27 Alkaline Phosphatase 53 Total Protein 7.4 Albumin 4.1 Triglycerides 163 H Cholesterol 178 LDL Cholesterol, Calc 95 HDL Cholesterol 51 Medications Medications Current Medications Acetaminophen (Acetaminophen 325 Mg Tablet) 650 mg PO Q6H PRN PRN Reason: Headache/Pain Mild Scale (1-3) Al Hydroxide/Mg Hydroxide (Magnesium Hydrox/Alum Hydrox 30 Ml Oral.Susp) 30 ml PO Q6H PRN PRN Reason: Heartburn/Nausea Bupropion HCl (Bupropion Hcl Xl 150 Mg Tab.Er.24h) 150 mg PO DAILY RAZIA Last Admin: 07/31/23 08:24 Dose: 150 mg Hydroxyzine HCl (Hydroxyzine Hcl 25 Mg Tablet) 25 mg PO Q6H PRN PRN Reason: Anxiety Last Admin: 07/31/23 08:24 Dose: 25 mg Magnesium Hydroxide (Milk Of Magnesia 30 Ml Oral.Susp) 30 ml PO DAILY PRN PRN Reason: Constipation Melatonin (Melatonin 3 Mg Tablet) 9 mg PO BEDTIME PRN PRN Reason: Insomnia Last Admin: 07/30/23 20:38 Dose: 9 mg Trazodone HCl (Trazodone Hcl 50 Mg Tablet) 50 mg PO BEDTIME MRX1 PRN PRN Reason: Insomnia Allergies Allergies Allergy/AdvReac Type Severity Reaction Status Date / Time naltrexone Allergy Hives Verified 12/31/22 21:26 Assessment & Plan Assessment & Plan (1) MDD (major depressive disorder), recurrent episode: Status: Acute Code(s): F33.9 - Major depressive disorder, recurrent, unspecified (2) PTSD (post-traumatic stress disorder): Status: Acute Code(s): F43.10 - Post-traumatic stress disorder, unspecified (3) Cocaine abuse: Status: Acute Code(s): F14.10 - Cocaine abuse, uncomplicated Plan Patient is a 43 year old male with hx of MDD, PTSD and cocaine abuse who presented to ER d/t suicidal ideation secondary to increased depressive symptoms and cocaine use. Plan: CV 15 minute safety checks continue home medications discharge planning possible referral to substance abuse program. 07/31: Patient reports feeling alright today; presents calm and friendly during 1:1. Patient stated, I'm taking this time to get myself together. I work six days a week. I'm hoping to get into a program to get some help . denies SI/HI/VH/AH. Continue current tx plan. Patient educated on: diagnosis, medication risk/benefits, substance abuse and therapeutic strategies Informed Consent: understands Reason for continued inpatient stay Substantial Risk for: med/psych decompensation Time Spent With Patient Time: Total time managing care of this patient today _20___ minutes.
[2023-07-31 09:58] VITALS: BP 137/79; PULSE 74; RESP 18; TEMP 36.2; O2SAT 100
[2023-07-31 10:44] VITALS: BMI 23.7
[2023-07-31] MEDS: Acetaminophen 325 MG TABLET 650 MG PO (17:54)
[2023-07-31 19:45] VITALS: BP 117/62; PULSE 86; RESP 15; TEMP 35.9; O2SAT 98
[2023-07-31] MEDS: Melatonin 3 MG TABLET 9 MG PO (20:32)
[2023-08-01 07:05] VITALS: BP 118/76; PULSE 58; RESP 18; TEMP 36.3; O2SAT 98
[2023-08-01] MEDS: hydrOXYzine HCL 25 MG TABLET PO ×3 (07:16→21:21)
--- NOTE | 2023-08-01 09:13 | HO.PSYCHPN ---
Subjective Subjective Date of Service: 08/01/23 Reason For Visit: Depression, opioid use disorder Subjective Notes: Conditional Voluntary Interim History: Reviewed with . Patient reports feeling good today; pt reports feeling good since I got accepted into the [employer] in [place] . keeping to self. calm. pleasant. denies SI/HI/VH/AH. Medication Compliance: Yes Side effects from medications: No Review of Systems Constitutional: Reports as per HPI Eyes: Reports as per HPI Reports as per HPI Cardiovascular: Reports as per HPI Respiratory: Reports as per HPI Gastrointestinal: Reports as per HPI Genitourinary: Reports as per HPI Musculoskeletal: Reports as per HPI Skin/Breast: Reports as per HPI Reports as per HPI Psychiatric: Reports as per HPI Endocrine: Reports as per HPI Hematologic/Lymphatic: Reports as per HPI Allergic/Immunologic: Reports as per HPI Mental Status Exam Mental Status Exam Narrative: Pt is alert and oriented; behavior is cooperative, friendly and calm; dressed in casual attire with unkempt hair but adequate hygiene; mood is described as good ; eye contact appropriate; Speech is normal rate, volume and prosody and not pressured; thought process is organized and goal directed; Thought content is on tx; otherwise pertinent to relevant topics and without any delusional content, paranoid ideations or grandiosity; denies SI/HI. There is no evidence of perceptual disturbance. Diagnostics Vital Signs (24Hr): Vital Signs - 24 hr 07/31/23 09:58 07/31/23 19:45 08/01/23 07:05 Temperature 97.1 F 96.7 F L 97.3 F Pulse Rate 74 86 58 Respiratory Rate 18 15 18 Blood Pressure 137/79 117/62 118/76 Pulse Oximetry 100 98 98 Oxygen Delivery Method Room Air Room Air Room Air BMI result Body Mass Index 23.7 Labs 07/31/23 08:32 Labs: Laboratory Results - last 48 hr 07/31/23 08:32 Sodium 139 Potassium 4.5 Chloride 105 Carbon Dioxide 28 Anion Gap 11 L BUN 14 Creatinine 0.91 Estim Creat Clear Calc 119.5 Estimated GFR > 60 Fasting Glucose 103 H Calcium 9.5 Total Bilirubin 0.3 AST 22 ALT 27 Alkaline Phosphatase 53 Total Protein 7.4 Albumin 4.1 Triglycerides 163 H Cholesterol 178 LDL Cholesterol, Calc 95 HDL Cholesterol 51 Medications Medications Current Medications Acetaminophen (Acetaminophen 325 Mg Tablet) 650 mg PO Q6H PRN PRN Reason: Headache/Pain Mild Scale (1-3) Last Admin: 07/31/23 17:54 Dose: 650 mg Al Hydroxide/Mg Hydroxide (Magnesium Hydrox/Alum Hydrox 30 Ml Oral.Susp) 30 ml PO Q6H PRN PRN Reason: Heartburn/Nausea Bupropion HCl (Bupropion Hcl Xl 150 Mg Tab.Er.24h) 150 mg PO DAILY RAZIA Last Admin: 07/31/23 08:24 Dose: 150 mg Hydroxyzine HCl (Hydroxyzine Hcl 25 Mg Tablet) 25 mg PO Q6H PRN PRN Reason: Anxiety Last Admin: 08/01/23 07:16 Dose: 25 mg Ibuprofen (Ibuprofen 600 Mg Tablet) 600 mg PO Q6H PRN PRN Reason: Pain, Moderate(Pain Scale 4-6) Magnesium Hydroxide (Milk Of Magnesia 30 Ml Oral.Susp) 30 ml PO DAILY PRN PRN Reason: Constipation Melatonin (Melatonin 3 Mg Tablet) 9 mg PO BEDTIME PRN PRN Reason: Insomnia Last Admin: 07/31/23 20:32 Dose: 9 mg Trazodone HCl (Trazodone Hcl 50 Mg Tablet) 50 mg PO BEDTIME MRX1 PRN PRN Reason: Insomnia Allergies Allergies Allergy/AdvReac Type Severity Reaction Status Date / Time naltrexone Allergy Hives Verified 12/31/22 21:26 Assessment & Plan Assessment & Plan (1) MDD (major depressive disorder), recurrent episode: Status: Acute Code(s): F33.9 - Major depressive disorder, recurrent, unspecified (2) PTSD (post-traumatic stress disorder): Status: Acute Code(s): F43.10 - Post-traumatic stress disorder, unspecified (3) Cocaine abuse: Status: Acute Code(s): F14.10 - Cocaine abuse, uncomplicated Plan Patient is a 43 year old male with hx of MDD, PTSD and cocaine abuse who presented to ER d/t suicidal ideation secondary to increased depressive symptoms and cocaine use. Plan: CV 15 minute safety checks continue home medications discharge planning possible referral to substance abuse program. 07/31: Patient reports feeling alright today; presents calm and friendly during 1:1. Patient stated, I'm taking this time to get myself together. I work six days a week. I'm hoping to get into a program to get some help . denies SI/HI/VH/AH. Continue current tx plan. 08/01: Patient reports feeling good today; pt reports feeling good since I got accepted into the [facility] in [place] . keeping to self. calm. pleasant. denies SI/HI/VH/AH. Continue current tx plan. Patient educated on: diagnosis, medication risk/benefits, substance abuse and therapeutic strategies Informed Consent: understands Reason for continued inpatient stay Substantial Risk for: med/psych decompensation Time Spent With Patient Time: Total time managing care of this patient today _20___ minutes.
[2023-08-01] MEDS: buPROPion HCl XL 150 MG TAB.ER.24H PO (09:44)
[2023-08-01 21:00] VITALS: BP 125/64; PULSE 60; RESP 18; TEMP 36.6; O2SAT 99
[2023-08-01] MEDS: Melatonin 3 MG TABLET 9 MG PO (23:55)
[2023-08-02] MEDS: hydrOXYzine HCL 25 MG TABLET PO ×2 (07:56→15:53)
[2023-08-02] MEDS: buPROPion HCl XL 150 MG TAB.ER.24H PO (07:56)
[2023-08-02 08:00] VITALS: BP 111/66; PULSE 84; RESP 16; TEMP 36.1; O2SAT 99
[2023-08-02 21:19] VITALS: BP 132/77; PULSE 77; RESP 14; TEMP 36.3; O2SAT 99
[2023-08-02] MEDS: traZODone HCL 50 MG TABLET PO (22:27)
[2023-08-02] MEDS: Melatonin 3 MG TABLET 9 MG PO (22:27)
--- NOTE | 2023-08-02 22:38 | P.PNPSI_ITS ---
Subjective Subjective Date of Service: 08/02/23 Reason For Visit: Depression, opioid use disorder Interim History: cc: I'm doing good, I spoke to the child protective services social worker yesterday Patient appears bright, was agreeable and engaging. He reports that he was accepted to a program on Friday, and that he just secured a ride from his uncle. He has concerns about getting discharged on AM in time in order for him to get an uber to bring him to his uncle's place of employment. He is hoping to be discharged as early as 8 or 9am. He reports he is feeling good...I'm sleeping, eating, doing exercises and doing ADLs . He denies any h/h/SI, HI, AVH. Medication Compliance: Yes Side effects from medications: No Mental Status Exam Mental Status Exam Narrative: Pt is alert and oriented; behavior is cooperative, friendly and calm; dressed in casual attire with unkempt hair but adequate hygiene; mood is described as good ; eye contact appropriate; Speech is normal rate, volume and prosody and not pressured; thought process is organized and goal directed; Thought content is on tx; otherwise pertinent to relevant topics and without any delusional content, paranoid ideations or grandiosity; denies SI/HI. There is no evidence of perceptual disturbance. Diagnostics Vital Signs (24Hr): Vital Signs - 24 hr 08/02/23 08:00 08/02/23 21:19 Temperature 96.9 F 97.4 F Pulse Rate 84 77 Respiratory Rate 16 14 Blood Pressure 111/66 132/77 Pulse Oximetry 99 99 Oxygen Delivery Method Room Air Room Air BMI result Body Mass Index 23.7 Labs 07/31/23 08:32 Medications Medications Current Medications Acetaminophen (Acetaminophen 325 Mg Tablet) 650 mg PO Q6H PRN PRN Reason: Headache/Pain Mild Scale (1-3) Last Admin: 07/31/23 17:54 Dose: 650 mg Al Hydroxide/Mg Hydroxide (Magnesium Hydrox/Alum Hydrox 30 Ml Oral.Susp) 30 ml PO Q6H PRN PRN Reason: Heartburn/Nausea Bupropion HCl (Bupropion Hcl Xl 150 Mg Tab.Er.24h) 150 mg PO DAILY RAZIA Last Admin: 08/02/23 07:56 Dose: 150 mg Hydroxyzine HCl (Hydroxyzine Hcl 25 Mg Tablet) 25 mg PO Q6H PRN PRN Reason: Anxiety Last Admin: 08/02/23 15:53 Dose: 25 mg Ibuprofen (Ibuprofen 600 Mg Tablet) 600 mg PO Q6H PRN PRN Reason: Pain, Moderate(Pain Scale 4-6) Magnesium Hydroxide (Milk Of Magnesia 30 Ml Oral.Susp) 30 ml PO DAILY PRN PRN Reason: Constipation Melatonin (Melatonin 3 Mg Tablet) 9 mg PO BEDTIME PRN PRN Reason: Insomnia Last Admin: 08/02/23 22:27 Dose: 9 mg Trazodone HCl (Trazodone Hcl 50 Mg Tablet) 50 mg PO BEDTIME MRX1 PRN PRN Reason: Insomnia Last Admin: 08/02/23 22:27 Dose: 50 mg Allergies Allergies Allergy/AdvReac Type Severity Reaction Status Date / Time naltrexone Allergy Hives Verified 12/31/22 21:26 Assessment & Plan Assessment & Plan (1) MDD (major depressive disorder), recurrent episode: Status: Acute Code(s): F33.9 - Major depressive disorder, recurrent, unspecified (2) PTSD (post-traumatic stress disorder): Status: Acute Code(s): F43.10 - Post-traumatic stress disorder, unspecified (3) Cocaine abuse: Status: Acute Code(s): F14.10 - Cocaine abuse, uncomplicated Plan Patient is a 43 year old male with hx of MDD, PTSD and cocaine abuse who presented to ER d/t suicidal ideation secondary to increased depressive symptoms and cocaine use. Plan: CV 15 minute safety checks continue home medications discharge planning possible referral to substance abuse program. 07/31: Patient reports feeling alright today; presents calm and friendly during 1:1. Patient stated, I'm taking this time to get myself together. I work six days a week. I'm hoping to get into a program to get some help . denies SI/HI/VH/AH. Continue current tx plan. 08/01: Patient reports feeling good today; pt reports feeling good since I got accepted into the [facility] in [place] . keeping to self. calm. pleasant. denies SI/HI/VH/AH. Continue current tx plan. Reason for continued inpatient stay Substantial Risk for: med/psych decompensation Time Spent With Patient Time: Total time managing care of this patient today ____ minutes.
[2023-08-03] MEDS: hydrOXYzine HCL 25 MG TABLET PO ×2 (06:26→13:26)
[2023-08-03] MEDS: buPROPion HCl XL 150 MG TAB.ER.24H PO (07:49)
[2023-08-03 08:30] VITALS: BP 114/60; PULSE 67; RESP 16; TEMP 35.8; O2SAT 100
[2023-08-03] MEDS: Acetaminophen 325 MG TABLET 650 MG PO (11:56)
[2023-08-03 19:40] VITALS: BP 125/63; PULSE 79; RESP 16; TEMP 36.7; O2SAT 99
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
[2023-08-03] MEDS: traZODone HCL 50 MG TABLET PO (23:01)
[2023-08-03] MEDS: Melatonin 3 MG TABLET 9 MG PO (23:01)
[2023-08-04 06:00] VITALS: BP 105/53; PULSE 71; RESP 18; TEMP 36.1; O2SAT 98
[2023-08-04] MEDS: buPROPion HCl XL 150 MG TAB.ER.24H PO (08:54)
[2023-08-04] MEDS: Ibuprofen 600 MG TABLET PO (08:54)
[2023-08-04] MEDS: hydrOXYzine HCL 25 MG TABLET PO (08:55)
[2023-08-04 19:50] VITALS: BP 127/58; PULSE 86; RESP 16; TEMP 36.7; O2SAT 99
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
[2023-08-04] MEDS: Melatonin 3 MG TABLET 9 MG PO (22:29)
[2023-08-04] MEDS: traZODone HCL 50 MG TABLET PO (22:29)
--- NOTE | 2023-08-05 06:06 | PC.NURSE ---
Garry is pleasant and cooperative, future focused and looking forward to d/c in am . denies all psych symptoms. PRN Melatonin and Trazodone at HS with positive effect monitor for safety, continue Plan of Care
[2023-08-05 07:40] VITALS: BP 114/68; PULSE 73; RESP 16; TEMP 36.1; O2SAT 100
[2023-08-05] MEDS: buPROPion HCl XL 150 MG TAB.ER.24H PO (08:46)
[2023-08-05] MEDS: hydrOXYzine HCL 25 MG TABLET PO (09:10)
[2023-08-05] MEDS: Ibuprofen 600 MG TABLET PO (09:10)
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
== END 2023-08-05 10:00 | DRG 751 ==
PROVIDERS: Clinical Nurse Specialist Psychiatric/Mental Health, Adult; Admitting Provider Psychiatry & Neurology Psychiatry; Responsible Provider Registered Nurse; Visit Provider Psychiatry & Neurology Psychiatry
DX: F33.9 Major depressive disorder, recurrent, unspecified (principal); R45.851 Suicidal ideations; F14.10 Cocaine abuse, uncomplicated; F43.12 Post-traumatic stress disorder, chronic; F19.10 Other psychoactive substance abuse, uncomplicated; G51.0 Bell's palsy; Z23 Encounter for immunization; Z62.819 Personal history of unspecified abuse in childhood; Z63.32 Other absence of family member; Z87.891 Personal history of nicotine dependence; Z79.899 Other long term (current) drug therapy
CPT/HCPCS: 36415; 80053; 80061; 90686

== ENCOUNTER → 2023-07-30 00:05 | Outpatient (BNV) | payer OTHER, SELFPAY | PROVIDERS: Admitting Provider Psychiatry & Neurology Psychiatry; Responsible Provider Registered Nurse; Visit Provider Registered Nurse | DX: F33.2 Major depressive disorder, recurrent severe without psychotic features (principal); F14.10 Cocaine abuse, uncomplicated; F43.11 Post-traumatic stress disorder, acute | CPT/HCPCS: 99231; 99232; 99233 ==

== ENCOUNTER → 2023-07-30 00:05 | Outpatient (BNV) | payer MEDICAID, SELFPAY | PROVIDERS: Admitting Provider Psychiatry & Neurology Psychiatry; Responsible Provider Registered Nurse; Visit Provider Student in an Organized Health Care Education/Training Program | DX: Z00.8 Encounter for other general examination (principal) | CPT/HCPCS: 99222 ==

== ENCOUNTER 2024-07-15 18:36 | Outpatient (BNV) | payer MEDICAID, SELFPAY | END 2024-07-19 15:40 | PROVIDERS: Admitting Provider Psychiatry & Neurology Psychiatry; Visit Provider Radiology Diagnostic Radiology | DX: R05.9 Cough, unspecified (principal) | CPT/HCPCS: 71046 ==

== ENCOUNTER 2024-07-15 18:36 | Inpatient (IN) | payer OTHER, SELFPAY ==
--- NOTE | ~2024-07-15 | XR_ITS ---
EXAMINATION: XR CHEST CLINICAL INFORMATION: URI sx, cough COMPARISON: None available. TECHNIQUE: 2 views of the chest were obtained. FINDINGS: No consolidation, pleural effusion or pneumothorax. Cardiomediastinal silhouette is normal. Osseous structures are intact. XR/XR chest 2V IMPRESSION: No acute airspace disease. Electronically signed by: Cornelius Johns MD 07/20/2024 08:15 AM [facility]
[2024-07-15 19:11] VITALS: BP 148/76; PULSE 76; RESP 18; TEMP 36.3; O2SAT 100
[2024-07-15 19:14] VITALS: BMI 26.7
[2024-07-15 20:00] VITALS: BP 128/69; PULSE 72; RESP 16; TEMP 36.4; O2SAT 98
--- NOTE | 2024-07-16 06:49 | PC.ADMIT ---
Patient is a 44 y.o Kazakh speaking male admitted on a CV to at 1854 and placed on 15 minute safety checks. He was medically cleared in the [facility] ED, where he self presented stating that he had recently been in respite but still remained depressed and did not feel that his medications were helpful. The patient's only son was murdered 01/25 and he is still struggling with his grief. According to the paperwork from [facility], patient said he had a history of trauma and with the holidays he has not been able to cope with his grief. Patient was cooperative with admission, signed all legals, denied any SI, HI, AVH. Did rate both his anxiety and depression 10/10. Patient said he does not smoke anymore and seldom drinks, but does occasionally smoke marijuana. Skin check was unremarkable, patient said he has no active health problems. Patient needs to sign safety tool, treatment plan and belongings list.
[2024-07-16 08:00] VITALS: BP 136/65; PULSE 67; RESP 16; TEMP 36.5; O2SAT 98
[2024-07-16 08:06] LABS: MANUAL DIFF FLAG NO
[2024-07-16 08:07] LABS: Basophils Percent Auto 0.5 % (0-2); Eosinophils Absolute Auto 0.1 X10*3/uL (0.0-0.4); Eosinophils Percent Auto 1.8 % (0-4); Hematocrit 36.6 % (42.0-52.0); Imm Gran Abs Auto 0.01 X10*3/uL (0.00-0.03); Imm Gran Pct Auto 0.3 % (0.0-0.4); Lymphocytes Absolute Auto 2.3 X10*3/uL (1.2-4.9); Lymphocytes Percent Auto 59.5 % (20-40); Mean Corpuscular HGB Conc 35.5 g/dl (31.0-36.0); Mean Corpuscular Hemoglobin 30.7 pg (27.0-33.0); Mean Corpuscular Volume 86.3 fL (80.0-98.0); Mean Platelet Volume 11.4 fL (9.4-12.4); Monocytes Absolute Auto 0.4 X10*3/uL (0.1-1.2); Monocytes Percent Auto 9.6 % (2-11); Neutrophils Absolute Auto 1.1 x10*3/uL (2.0-8.3); Neutrophils Percent Auto 28.3 % (45-73); Platelet Count 160 X10*3/uL (160-400); Red Blood Count 4.24 X10*6/uL (4.60-5.80); Red Cell Distribution Width 12.9 % (11.0-16.0); White Blood Count 3.9 X10*3/uL (4.8-10.8)
[2024-07-16 08:29] LABS: Cholesterol 166 mg/dL (<200); HDL Cholesterol 37 mg/dL (>40); LDL Cholesterol Calculated 113 mg/dL (<100); Triglycerides 84 mg/dL (<150)
[2024-07-16 08:33] LABS: Anion Gap 13 (12-20); Aspartate Amino Transferase 36 U/L (5-37); Bilirubin Total 0.4 mg/dL (0.0-1.0); Blood Urea Nitrogen 16 mg/dL (9-16); C Reactive Protein 0.14 mg/dL (< or = 0.50); Calcium 9.1 mg/dL (8.4-10.2); Carbon Dioxide 23 mmol/L (22-29); Chloride 106 mmol/L (96-108); Creatinine Clr Calc Pharmacy 97.5; Estimated Glomerular Filt Rate > 60; Glucose Random 93 mg/dL (60-115); Potassium 4.1 mmol/L (3.3-5.1); Sodium 138 mmol/L (135-145); Total Protein 6.5 g/dL (6.5-8.0)
[2024-07-16 08:44] LABS: Estimated Average Glucose 103 mg/dL; Hemoglobin A1C 111.3079 umol/L; Hemoglobin A1c % 5.2 % (<6.0); Total Hemoglobin (HGBA1C) 3326.5312 umol/L
[2024-07-16 08:45] LABS: TSH reflex Free T4 1.85 uIU/mL (0.32-4.0)
[2024-07-16 08:52] LABS: Alanine Aminotransferase 25 U/L (0-40); Alkaline Phosphatase 52 U/L (39-117)
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
--- NOTE | 2024-07-16 11:41 | P.CONHOSP_ITS ---
History of Present Illness Data of Consult Service Date: 07/16/24 Primary Care Provider: Unknown Physician HPI Reason for consult: Admission H&P Pt is a 44-year-old male with a PMH significant for polysubstance use disorder, PTSD, and depression who is admitted to [facility] psychiatry unit for increased depression. Medical consult for admission H&P. Patient seen and evaluated in his room where he is resting comfortably in bed. Patient reports he has not slept for the past 2 days and declines formal interview and examination. Patient reports has recently seen his PCP and does not carry any significant medical diagnosis nor easy on any prescription medication. Patient states he has no acute medical complaints. Labs reviewed, significant for mild normocytic anemia of 13.0/36.6, otherwise grossly unremarkable. Vital signs stable and largely WNL. Review of Systems 2 Review of Systems: Patient has no acute medical complaints at this time [facility] Medical History (Updated 07/16/24 @ 14:15 by IFTIKHAR Reardon) Medical clearance for psychiatric admission Sixth cranial nerve palsy Polysubstance use disorder PTSD (post-traumatic stress disorder) Recurrent major depression Polysubstance abuse Social History Household Members: None Housing: House Do you presently have visiting nurse or other home services: No Patient Tobacco Use Status: Former Tobacco user Years Smoked: 12 Smoked in Last 30 Days: No e-Cigarette/Vaping Use: Former Use Patient Interested in Nicotine Replacement: No Patient Given Instructions on How to Stop Smoking: No Second Hand Smoke Exposure: Yes Use of substances other than those prescribed or required for medical reasons: Yes Substance Use Type: Marijuana Substance Use Frequency: Socially Last Used Substance: Weeks (ago) Last Used Substance Other:: 2 weeks ago Currently Displaying Signs/Symptoms of Drug Intoxication Withdrawal: No Any prior treatment program specific to substance use: Yes Have you been hit, kicked, punched, or otherwise hurt by someone within the past year? If so, by whom?: No Do you feel safe in your current relationship?: No Current Relationship Is there a partner from a previous relationship who is making you feel unsafe now?: No Are you made to feel afraid or neglected: No Spiritual Healthcare Practices: none Taoist Healthcare Practices: none Cultural Healthcare Practices: none Advance Directives: No Advance Directives Information Provided: Yes Do you have thoughts of harming others: None Do you have a plan to hurt others: No Plan Recently lost weight without trying: Yes How much weight loss: 2-13 pounds Eating poorly because of decreased appetite: No Nutrition screen score: 3 Nutrition Risks: No Nutritional Risk Poor oral hygiene: No service: No Sexual orientation: Unable to collect Meds Allergies Allergy/AdvReac Type Severity Reaction Status Date / Time naltrexone Allergy Hives Verified 12/31/22 21:26 Active Medications: Current Medications Acetaminophen (Acetaminophen 325 Mg Tablet) 650 mg PO Q6H PRN PRN Reason: Headache/Pain Mild Scale (1-3) Al Hydroxide/Mg Hydroxide (Magnesium Hydrox/Alum Hydrox 30 Ml Oral.Susp) 30 ml PO Q6H PRN PRN Reason: Heartburn/Nausea Hydroxyzine HCl (Hydroxyzine Hcl 25 Mg Tablet) 25 mg PO Q6H PRN PRN Reason: Anxiety Magnesium Hydroxide (Milk Of Magnesia 30 Ml Oral.Susp) 30 ml PO DAILY PRN PRN Reason: Constipation Nicotine (Nicotine 21 Mg Patch.Td24) 21 mg TRANSDERMA DAILY PRN PRN Reason: smoking cessation Nicotine Polacrilex (Nicotine Polacrilex 2 Mg Gum) 4 mg BUCCAL Q2H PRN PRN Reason: Nicotine Cravings Olanzapine (Olanzapine 5 Mg Tablet) 5 mg PO TID PRN PRN Reason: agitation Trazodone HCl (Trazodone Hcl 50 Mg Tablet) 50 mg PO BEDTIME MRX1 PRN PRN Reason: Insomnia Physical Exam 2 Vital Signs and Narrative: Vital Signs: Last Vital Signs Temp 97.6 F 07/15/24 20:00 Pulse 72 07/15/24 20:00 Resp 16 07/15/24 20:00 BP 128/69 07/15/24 20:00 Pulse Ox 98 07/15/24 20:00 O2 Del Method Room Air 07/15/24 19:11 BMI result Body Mass Index 26.7 Patient declines physical examination Results Labs 07/16/24 07:54 07/16/24 07:54 Labs: Laboratory Results - last 24 hr 07/16/24 07/16/24 07:54 07:55 MCV 86.3 MCH 30.7 MCHC 35.5 RDW 12.9 Plt Count 160 MPV 11.4 Immature Gran % (Auto) 0.3 Neut % (Auto) 28.3 L Lymph % (Auto) 59.5 H [place] % (Auto) 9.6 Eos % (Auto) 1.8 Baso % (Auto) 0.5 Lymph # (Auto) 2.3 [place] # (Auto) 0.4 Eos # (Auto) 0.1 Baso # (Auto) 0.0 Abs Immat Gran (auto) 0.01 Absolute Neuts (auto) 1.1 L Absolute Nucleated RBC 0.000 Nucleated RBC % (auto) 0.0 Anion Gap 13 Estim Creat Clear Calc 97.5 Estimated GFR > 60 Random Glucose 93 Estimat Average Glucose 103 Hemoglobin A1c % 5.2 Calcium 9.1 Total Bilirubin 0.4 AST 36 ALT 25 Alkaline Phosphatase 52 C-Reactive Protein 0.14 Total Protein 6.5 Albumin 4.0 Triglycerides 84 Cholesterol 166 LDL Cholesterol, Calc 113 H HDL Cholesterol 37 L TSH 1.85 Assessment and Plan (1) Medical clearance for psychiatric admission: Status: Acute Plan Pt is a 44-year-old male with a PMH significant for polysubstance use disorder, PTSD, and depression who is admitted to M5 psychiatry unit for increased depression. Medical consult for admission H&P. Mood disorder Plan as per Psychiatry Polysubstance use disorder Plan as per Addiction Medicine/psychiatry Patient otherwise has no known chronic medical conditions or acute medical complaints at this time. Will sign off for now. Thank you for allowing us to participate in the care of this patient. Please re-consult if any acute issue or need arises.
[2024-07-16 20:00] VITALS: BP 125/67; PULSE 73; TEMP 36.9; O2SAT 98
[2024-07-16] MEDS: Mirtazapine 7.5 MG TABLET PO (21:52)
[2024-07-17 08:00] VITALS: BP 120/56; PULSE 68; RESP 16; TEMP 36.4; O2SAT 97
--- NOTE | 2024-07-17 10:24 | HO.PSYCHPN ---
Subjective Subjective Date of Service: 07/17/24 Reason For Visit: PTSD Interim History: pressed. Pleasant. Poor sleep. Started Remeron last night and slept well with some sedation today. Continues to endorse feeling depressed, thoughts of and hopelessness in the context of the holidays and losing his son in January this year. Advocated at length regarding necklace that has his son's ashes. Discussed with Nursing and order in place for patient to have same. No psychosis. No med concerns. Medication Compliance: Yes Side effects from medications: No Attending Groups: Intermittent Review of Systems Acute medical concerns: No Review of Systems Review of Systems Unremarkable Mental Status Exam Mental Status Exam Patient Appearance: Appropriate Patient Orientation: Person, Place, Time and Situation Level of Consciousness: Alert Patient Behavior: Talkative and Good Eye Contact Mood Description: Depressed Affect Description: Flat Patient Cognition Impaired: No Ability to Follow Directions: Good Speech Pattern: Spontaneous Speech Memory Description: Intact Diagnostics Vital Signs (24Hr): Vital Signs - 24 hr 07/16/24 20:00 07/17/24 08:00 Temperature 98.4 F 97.5 F Pulse Rate 73 68 Respiratory Rate 16 Blood Pressure 125/67 120/56 L Pulse Oximetry 98 97 Oxygen Delivery Method Room Air Room Air BMI result Body Mass Index 26.7 Labs 07/16/24 07:54 07/16/24 07:54 Labs: Laboratory Results - last 48 hr 07/16/24 07/16/24 07:54 07:55 WBC 3.9 L RBC 4.24 L Hgb 13.0 L Hct 36.6 L MCV 86.3 MCH 30.7 MCHC 35.5 RDW 12.9 Plt Count 160 MPV 11.4 Immature Gran % (Auto) 0.3 Neut % (Auto) 28.3 L Lymph % (Auto) 59.5 H [place] % (Auto) 9.6 Eos % (Auto) 1.8 Baso % (Auto) 0.5 Lymph # (Auto) 2.3 [place] # (Auto) 0.4 Eos # (Auto) 0.1 Baso # (Auto) 0.0 Abs Immat Gran (auto) 0.01 Absolute Neuts (auto) 1.1 L Absolute Nucleated RBC 0.000 Nucleated RBC % (auto) 0.0 Sodium 138 Potassium 4.1 Chloride 106 Carbon Dioxide 23 Anion Gap 13 BUN 16 Creatinine 1.04 Estim Creat Clear Calc 97.5 Estimated GFR > 60 Random Glucose 93 Estimat Average Glucose 103 Hemoglobin A1c % 5.2 Calcium 9.1 Total Bilirubin 0.4 AST 36 ALT 25 Alkaline Phosphatase 52 C-Reactive Protein 0.14 Total Protein 6.5 Albumin 4.0 Triglycerides 84 Cholesterol 166 LDL Cholesterol, Calc 113 H HDL Cholesterol 37 L TSH 1.85 Medications Medications Current Medications Acetaminophen (Acetaminophen 325 Mg Tablet) 650 mg PO Q6H PRN PRN Reason: Headache/Pain Mild Scale (1-3) Al Hydroxide/Mg Hydroxide (Magnesium Hydrox/Alum Hydrox 30 Ml Oral.Susp) 30 ml PO Q6H PRN PRN Reason: Heartburn/Nausea Bupropion HCl (Bupropion Hcl Xl 150 Mg Tab.Er.24h) 150 mg PO DAILY [facility] Hydroxyzine HCl (Hydroxyzine Hcl 25 Mg Tablet) 25 mg PO Q6H PRN PRN Reason: Anxiety Magnesium Hydroxide (Milk Of Magnesia 30 Ml Oral.Susp) 30 ml PO DAILY PRN PRN Reason: Constipation Mirtazapine (Mirtazapine 7.5 Mg Tablet) 7.5 mg PO BEDTIME [facility] Last Admin: 07/16/24 21:52 Dose: 7.5 mg Nicotine (Nicotine 21 Mg Patch.Td24) 21 mg TRANSDERMA DAILY PRN PRN Reason: smoking cessation Nicotine Polacrilex (Nicotine Polacrilex 2 Mg Gum) 4 mg BUCCAL Q2H PRN PRN Reason: Nicotine Cravings Olanzapine (Olanzapine 5 Mg Tablet) 5 mg PO TID PRN PRN Reason: agitation Trazodone HCl (Trazodone Hcl 50 Mg Tablet) 50 mg PO BEDTIME MRX1 PRN PRN Reason: Insomnia Allergies Allergies Allergy/AdvReac Type Severity Reaction Status Date / Time naltrexone Allergy Hives Verified 12/31/22 21:26 Assessment & Plan Assessment & Plan (1) MDD (major depressive disorder), recurrent episode: Status: Acute Code(s): F33.9 - Major depressive disorder, recurrent, unspecified (2) PTSD (post-traumatic stress disorder): Status: Acute Code(s): F43.10 - Post-traumatic stress disorder, unspecified (3) Alcohol abuse: Status: Acute Code(s): F10.10 - Alcohol abuse, uncomplicated (4) Cannabis abuse: Status: Acute Code(s): F12.10 - Cannabis abuse, uncomplicated Plan PTSD, Recurrent Major Depression, Alcohol, Cannabis Abuse. Plan: Admit, CV, 15 minute checks Diagnostics as needed Collateral contact Restart Wellbutrin XL 150 mg daily Restart Mirtazapine 7.5 mg hs Encourage full milieu Discharge/Aftercare planning, ?CSS transfer 07/17/2024: No changes. Continue to monitor sedation on mirtazapine. Reason for continued inpatient stay Substantial Risk for: harm to self and inability to function Time Spent With Patient Time: Total time managing care of this patient today ____ minutes.
[2024-07-17] MEDS: buPROPion HCl XL 150 MG TAB.ER.24H PO (10:57)
[2024-07-17 20:00] VITALS: BP 161/90; PULSE 86; RESP 18; TEMP 36.3; O2SAT 98
[2024-07-17] MEDS: Mirtazapine 7.5 MG TABLET PO (21:47)
[2024-07-17] MEDS: hydrOXYzine HCL 25 MG TABLET PO (22:41)
[2024-07-18 07:54] VITALS: BP 130/62; PULSE 64; RESP 16; TEMP 36.8; O2SAT 99
[2024-07-18] MEDS: buPROPion HCl XL 150 MG TAB.ER.24H PO (08:44)
--- NOTE | 2024-07-18 10:29 | P.PNPSI_ITS ---
Subjective Subjective Date of Service: 07/18/24 Reason For Visit: PTSD Medical Problems Affecting Mental Status: No Interim History: Sedate from remeron, but also sleeping much better. Thankful he got his necklace (has sons ashes). Continues to endorse feeling depressed, thoughts of and hopelessness in the context of the holidays and losing his son in January this year. No psychosis. Medication Compliance: Yes Side effects from medications: Yes (sedation) Attending Groups: Yes Review of Systems Acute medical concerns: No Review of Systems Review of Systems Unremarkable Mental Status Exam Mental Status Exam Patient Appearance: Appropriate Patient Orientation: Person, Place, Time and Situation Level of Consciousness: Alert Patient Behavior: Talkative and Good Eye Contact Mood Description: Depressed Affect Description: Flat Patient Cognition Impaired: No Ability to Follow Directions: Good Speech Pattern: Spontaneous Speech Memory Description: Intact Diagnostics Vital Signs (24Hr): Vital Signs - 24 hr 07/17/24 20:00 07/18/24 07:54 Temperature 97.3 F 98.2 F Pulse Rate 86 64 Respiratory Rate 18 16 Blood Pressure 161/90 H 130/62 Pulse Oximetry 98 99 Oxygen Delivery Method Room Air Room Air BMI result Body Mass Index 26.7 Labs 07/16/24 07:54 07/16/24 07:54 Medications Medications Current Medications Acetaminophen (Acetaminophen 325 Mg Tablet) 650 mg PO Q6H PRN PRN Reason: Headache/Pain Mild Scale (1-3) Al Hydroxide/Mg Hydroxide (Magnesium Hydrox/Alum Hydrox 30 Ml Oral.Susp) 30 ml PO Q6H PRN PRN Reason: Heartburn/Nausea Bupropion HCl (Bupropion Hcl Xl 150 Mg Tab.Er.24h) 150 mg PO DAILY [facility] Last Admin: 07/18/24 08:44 Dose: 150 mg Hydroxyzine HCl (Hydroxyzine Hcl 25 Mg Tablet) 25 mg PO Q6H PRN PRN Reason: Anxiety Last Admin: 07/17/24 22:41 Dose: 25 mg Magnesium Hydroxide (Milk Of Magnesia 30 Ml Oral.Susp) 30 ml PO DAILY PRN PRN Reason: Constipation Mirtazapine (Mirtazapine 7.5 Mg Tablet) 7.5 mg PO BEDTIME [facility] Last Admin: 07/17/24 21:47 Dose: 7.5 mg Nicotine (Nicotine 21 Mg Patch.Td24) 21 mg TRANSDERMA DAILY PRN PRN Reason: smoking cessation Nicotine Polacrilex (Nicotine Polacrilex 2 Mg Gum) 4 mg BUCCAL Q2H PRN PRN Reason: Nicotine Cravings Olanzapine (Olanzapine 5 Mg Tablet) 5 mg PO TID PRN PRN Reason: agitation Trazodone HCl (Trazodone Hcl 50 Mg Tablet) 50 mg PO BEDTIME MRX1 PRN PRN Reason: Insomnia Allergies Allergies Allergy/AdvReac Type Severity Reaction Status Date / Time naltrexone Allergy Hives Verified 12/31/22 21:26 Assessment & Plan Assessment & Plan (1) MDD (major depressive disorder), recurrent episode: Status: Acute Code(s): F33.9 - Major depressive disorder, recurrent, unspecified (2) PTSD (post-traumatic stress disorder): Status: Acute Code(s): F43.10 - Post-traumatic stress disorder, unspecified (3) Alcohol abuse: Status: Acute Code(s): F10.10 - Alcohol abuse, uncomplicated (4) Cannabis abuse: Status: Acute Code(s): F12.10 - Cannabis abuse, uncomplicated Plan PTSD, Recurrent Major Depression, Alcohol, Cannabis Abuse. Plan: Admit, CV, 15 minute checks Diagnostics as needed Collateral contact Restart Wellbutrin XL 150 mg daily Restart Mirtazapine 7.5 mg hs Encourage full milieu Discharge/Aftercare planning, ?CSS transfer 07/17/2024: No changes. Continue to monitor sedation on mirtazapine. 07/18: lower remeron to 3.75mg (helping sleep but daytime sedation). If still sedate will likely need to consider another antidepressant Reason for continued inpatient stay Substantial Risk for: harm to self Time Spent With Patient Time: Total time managing care of this patient today ____ minutes.
[2024-07-18 20:00] VITALS: BP 138/68; PULSE 85; TEMP 36.9; O2SAT 98
[2024-07-18] MEDS: Mirtazapine 7.5 MG TABLET 3.75 MG PO (20:42)
[2024-07-18] MEDS: OLANZapine 5 MG TABLET PO (20:46)
[2024-07-19 08:00] VITALS: BP 107/59; PULSE 63; RESP 16; TEMP 36.3; O2SAT 99
[2024-07-19] MEDS: buPROPion HCl XL 150 MG TAB.ER.24H PO (08:21)
--- NOTE | 2024-07-19 09:47 | HO.PSYCHPN ---
Subjective Subjective Date of Service: 07/19/24 Reason For Visit: PTSD Subjective Notes: Conditional Voluntary Healthcare Proxy: No Guardianship: No Medical Problems Affecting Mental Status: No Interim History: Mirtazapine dose decrease from 7.5 mg hs to 3.75 mg hs over the weekend, pt reporting it felt too strong. URI sx , eval completed, +RSV. Discussed grief over the loss of son however, today, main focus are sx of physical illness and recovery. Encouraged rest, fluids. Medication Compliance: Yes Side effects from medications: Yes (mirtazapine dose 7.5 too strong for pt) Attending Groups: No Review of Systems RSV+ Medical Review of Systems: unchanged Review of Systems Review of Systems URI Sx. Mental Status Exam Mental Status Exam Patient Appearance: Fatigued Patient Orientation: Person, Place, Time and Situation Level of Consciousness: Alert Patient Behavior: Appropriate, Talkative and Good Eye Contact Mood Description: Depressed Affect Description: Flat Patient Cognition Impaired: No Ability to Follow Directions: Good Speech Pattern: Spontaneous Speech Memory Description: Intact Hallucinations: None Delusions: Not Present Thought Process: Intact and Goal Oriented Thought Content: positive for Intact and positive for Goal Oriented Depressive Symptoms: Increased Irritability Judgement: Good Diagnostics Vital Signs (24Hr): Vital Signs - 24 hr 07/18/24 20:00 Temperature 98.4 F Pulse Rate 85 Blood Pressure 138/68 Pulse Oximetry 98 Oxygen Delivery Method Room Air BMI result Body Mass Index 26.7 Labs 07/16/24 07:54 07/16/24 07:54 Medications Medications Current Medications Acetaminophen (Acetaminophen 325 Mg Tablet) 650 mg PO Q6H PRN PRN Reason: Headache/Pain Mild Scale (1-3) Al Hydroxide/Mg Hydroxide (Magnesium Hydrox/Alum Hydrox 30 Ml Oral.Susp) 30 ml PO Q6H PRN PRN Reason: Heartburn/Nausea Bupropion HCl (Bupropion Hcl Xl 150 Mg Tab.Er.24h) 150 mg PO DAILY [facility] Last Admin: 07/19/24 08:21 Dose: 150 mg Hydroxyzine HCl (Hydroxyzine Hcl 25 Mg Tablet) 25 mg PO Q6H PRN PRN Reason: Anxiety Last Admin: 07/17/24 22:41 Dose: 25 mg Magnesium Hydroxide (Milk Of Magnesia 30 Ml Oral.Susp) 30 ml PO DAILY PRN PRN Reason: Constipation Mirtazapine (Mirtazapine 7.5 Mg Tablet) 3.75 mg PO BEDTIME [facility] Last Admin: 07/18/24 20:42 Dose: 3.75 mg Nicotine (Nicotine 21 Mg Patch.Td24) 21 mg TRANSDERMA DAILY PRN PRN Reason: smoking cessation Nicotine Polacrilex (Nicotine Polacrilex 2 Mg Gum) 4 mg BUCCAL Q2H PRN PRN Reason: Nicotine Cravings Olanzapine (Olanzapine 5 Mg Tablet) 5 mg PO TID PRN PRN Reason: agitation Last Admin: 07/18/24 20:46 Dose: 5 mg Trazodone HCl (Trazodone Hcl 50 Mg Tablet) 50 mg PO BEDTIME MRX1 PRN PRN Reason: Insomnia Allergies Allergies Allergy/AdvReac Type Severity Reaction Status Date / Time naltrexone Allergy Hives Verified 12/31/22 21:26 Assessment & Plan Assessment & Plan (1) MDD (major depressive disorder), recurrent episode: Status: Acute Code(s): F33.9 - Major depressive disorder, recurrent, unspecified (2) PTSD (post-traumatic stress disorder): Status: Acute Code(s): F43.10 - Post-traumatic stress disorder, unspecified (3) Alcohol abuse: Status: Acute Code(s): F10.10 - Alcohol abuse, uncomplicated (4) Cannabis abuse: Status: Acute Code(s): F12.10 - Cannabis abuse, uncomplicated Plan PTSD, Recurrent Major Depression, Alcohol, Cannabis Abuse. Plan: Admit, CV, 15 minute checks Diagnostics as needed Collateral contact Restart Wellbutrin XL 150 mg daily Restart Mirtazapine 7.5 mg hs Encourage full milieu Discharge/Aftercare planning, ?CSS transfer 07/17/2024: No changes. Continue to monitor sedation on mirtazapine. 07/18: lower remeron to 3.75mg (helping sleep but daytime sedation). If still sedate will likely need to consider another antidepressant 07/19- +RSV- sx mgt. Continue regime Program applications are pending Reason for continued inpatient stay Substantial Risk for: rapid decompensation and med/psych decompensation Time Spent With Patient Time: Total time managing care of this patient today ____ minutes.
[2024-07-19] MEDS: OLANZapine 5 MG TABLET PO (13:17)
[2024-07-19] MEDS: guaiFENesin 100 MG/5 ML 5 ML LIQUID PO ×2 (13:58→18:20)
[2024-07-19] MEDS: Throat Lozenge, Medicated LOZENGE 1 LOZENGE MUCOUS MEM ×2 (13:58→18:20)
[2024-07-19 17:11] LABS: Influenza A PCR NEGATIVE (Negative); Influenza B PCR NEGATIVE (Negative); Resp Syncy Virus RNA Qual PCR POSITIVE (Negative); SARS COV2 PCR INHOUSE NEGATIVE (Negative)
[2024-07-19 20:00] VITALS: BP 131/70; PULSE 91; RESP 16; TEMP 37; O2SAT 98
[2024-07-20] MEDS: guaiFENesin 100 MG/5 ML 5 ML LIQUID PO ×3 (07:59→22:08)
[2024-07-20] MEDS: Throat Lozenge, Medicated LOZENGE 1 LOZENGE MUCOUS MEM ×3 (07:59→22:08)
[2024-07-20] MEDS: Thiamine HCL 100 MG TABLET PO (08:21)
[2024-07-20] MEDS: Ascorbic Acid 250 MG TABLET PO ×2 (08:21→22:07)
[2024-07-20] MEDS: Folic Acid 1 MG TABLET PO (08:21)
[2024-07-20] MEDS: Multivitamin TABLET 1 TAB PO (08:21)
[2024-07-20] MEDS: buPROPion HCl XL 150 MG TAB.ER.24H PO (08:21)
[2024-07-20 08:41] VITALS: BP 116/63; PULSE 68; RESP 18; TEMP 36.8; O2SAT 98
--- NOTE | 2024-07-20 17:07 | P.PNPSI_ITS ---
Subjective Subjective Date of Service: 07/20/24 Reason For Visit: PTSD Subjective Notes: Conditional Voluntary Healthcare Proxy: No Guardianship: No Medical Problems Affecting Mental Status: No Interim History: RSV + with active symptoms and pt reports feeling ill. Reviewed meds that are in place for symptom relief. Reports feeling irritable with illness, coughing. Pending program applications. Pt staying in bed. No issues of concern he wanted to discuss today. Medication Compliance: Yes Side effects from medications: No Attending Groups: No Review of Systems RSV+ Review of Systems Review of Systems RSV+, URI with cough Mental Status Exam Mental Status Exam Patient Appearance: Fatigued Patient Orientation: Person, Place, Time and Situation Level of Consciousness: Alert Patient Behavior: Talkative, Fatigued and Good Eye Contact Mood Description: Withdrawn and Depressed Affect Description: Withdrawn Patient Cognition Impaired: No Ability to Follow Directions: Good Speech Pattern: Spontaneous Speech Memory Description: Intact Hallucinations: None Delusions: Not Present Thought Process: Rumination Thought Content: positive for Circumstantial Depressive Symptoms: Increased Irritability, Changes in Appetite, Sleeping More Than Usual, Increased Fatigue and Loss of Energy Judgement: Fair Diagnostics Vital Signs (24Hr): Vital Signs - 24 hr 07/19/24 20:00 07/20/24 08:41 Temperature 98.6 F 98.2 F Pulse Rate 91 68 Respiratory Rate 16 18 Blood Pressure 131/70 116/63 Pulse Oximetry 98 98 Oxygen Delivery Method Room Air Room Air BMI result Body Mass Index 26.7 Labs 07/16/24 07:54 07/16/24 07:54 Labs: Laboratory Results - last 48 hr 07/19/24 16:06 Influenza Type A (PCR) NEGATIVE Influenza Type B (PCR) NEGATIVE RSV RNA Qual (PCR) POSITIVE A SARS-CoV-2 RNA (RT-PCR) NEGATIVE Imaging Radiology Impressions: ITS Impressions Chest X-Ray 07/19/24 15:40 IMPRESSION: No acute airspace disease. Electronically signed by: Cornelius Johns MD 07/20/2024 08:15 AM [facility] Medications Medications Current Medications Acetaminophen (Acetaminophen 325 Mg Tablet) 650 mg PO Q6H PRN PRN Reason: Headache/Pain Mild Scale (1-3) Al Hydroxide/Mg Hydroxide (Magnesium Hydrox/Alum Hydrox 30 Ml Oral.Susp) 30 ml PO Q6H PRN PRN Reason: Heartburn/Nausea Ascorbic Acid (Ascorbic Acid 250 Mg Tablet) 250 mg PO BID [facility] Last Admin: 07/20/24 08:21 Dose: 250 mg Benzocaine (Throat Lozenge, Medicated Lozenge) 1 lozenge MUCOUS MEM Q2H PRN PRN Reason: Sore Throat Last Admin: 07/20/24 07:59 Dose: 1 lozenge Bupropion HCl (Bupropion Hcl Xl 150 Mg Tab.Er.24h) 150 mg PO DAILY [facility] Last Admin: 07/20/24 08:21 Dose: 150 mg Folic Acid (Folic Acid 1 Mg Tablet) 1 mg PO DAILY [facility] Last Admin: 07/20/24 08:21 Dose: 1 mg Guaifenesin (Guaifenesin 100 Mg/5 Ml 5 Ml Liquid) 5 ml PO Q4H PRN PRN Reason: Cough Last Admin: 07/20/24 07:59 Dose: 5 ml Guaifenesin/Dextromethorphan (Guaifenesin Dm 600/30 1 Tab Tab.Er.12h) 1 tab PO BID PRN PRN Reason: Cough Hydroxyzine HCl (Hydroxyzine Hcl 25 Mg Tablet) 25 mg PO Q6H PRN PRN Reason: Anxiety Last Admin: 07/17/24 22:41 Dose: 25 mg Ibuprofen (Ibuprofen 600 Mg Tablet) 600 mg PO Q6H PRN PRN Reason: Pain, Mild (Pain Scale 1-3) Magnesium Hydroxide (Milk Of Magnesia 30 Ml Oral.Susp) 30 ml PO DAILY PRN PRN Reason: Constipation Mirtazapine (Mirtazapine 7.5 Mg Tablet) 3.75 mg PO BEDTIME [facility] Last Admin: 07/19/24 22:21 Dose: Not Given Multivitamins/Vitamin C (Multivitamin Tablet) 1 tab PO DAILY [facility] Last Admin: 07/20/24 08:21 Dose: 1 tab Nicotine (Nicotine 21 Mg Patch.Td24) 21 mg TRANSDERMA DAILY PRN PRN Reason: smoking cessation Nicotine Polacrilex (Nicotine Polacrilex 2 Mg Gum) 4 mg BUCCAL Q2H PRN PRN Reason: Nicotine Cravings Olanzapine (Olanzapine 5 Mg Tablet) 5 mg PO TID PRN PRN Reason: agitation Last Admin: 07/19/24 13:17 Dose: 5 mg Thiamine HCl (Thiamine Hcl 100 Mg Tablet) 100 mg PO DAILY [facility] Last Admin: 07/20/24 08:21 Dose: 100 mg Trazodone HCl (Trazodone Hcl 50 Mg Tablet) 50 mg PO BEDTIME MRX1 PRN PRN Reason: Insomnia Allergies Allergies Allergy/AdvReac Type Severity Reaction Status Date / Time naltrexone Allergy Hives Verified 12/31/22 21:26 Assessment & Plan Assessment & Plan (1) MDD (major depressive disorder), recurrent episode: Status: Acute Code(s): F33.9 - Major depressive disorder, recurrent, unspecified (2) PTSD (post-traumatic stress disorder): Status: Acute Code(s): F43.10 - Post-traumatic stress disorder, unspecified (3) Alcohol abuse: Status: Acute Code(s): F10.10 - Alcohol abuse, uncomplicated (4) Cannabis abuse: Status: Acute Code(s): F12.10 - Cannabis abuse, uncomplicated Plan PTSD, Recurrent Major Depression, Alcohol, Cannabis Abuse. Plan: Admit, CV, 15 minute checks Diagnostics as needed Collateral contact Restart Wellbutrin XL 150 mg daily Restart Mirtazapine 7.5 mg hs Encourage full milieu Discharge/Aftercare planning, ?CSS transfer 07/17/2024: No changes. Continue to monitor sedation on mirtazapine. 07/18: lower remeron to 3.75mg (helping sleep but daytime sedation). If still sedate will likely need to consider another antidepressant 07/19- +RSV- sx mgt. Continue regime Program applications are pending 07/20: Continue regime Continue sx mgt of +RSV Reason for continued inpatient stay Substantial Risk for: med/psych decompensation Time Spent With Patient Time: Total time managing care of this patient today ____ minutes.
[2024-07-20] MEDS: guaiFENesin DM 600/30 1 TAB TAB.ER.12H PO (17:52)
[2024-07-20 20:00] VITALS: BP 151/84; PULSE 80; RESP 16; O2SAT 98
[2024-07-20] MEDS: Mirtazapine 7.5 MG TABLET 3.75 MG PO (22:08)
[2024-07-20] MEDS: hydrOXYzine HCL 25 MG TABLET PO (22:10)
[2024-07-21] MEDS: Acetaminophen 325 MG TABLET 650 MG PO ×2 (06:37→14:18)
[2024-07-21] MEDS: guaiFENesin 100 MG/5 ML 5 ML LIQUID PO ×3 (06:37→19:57)
[2024-07-21] MEDS: Throat Lozenge, Medicated LOZENGE 1 LOZENGE MUCOUS MEM ×4 (06:37→19:57)
[2024-07-21] MEDS: guaiFENesin DM 600/30 1 TAB TAB.ER.12H PO ×2 (06:37→19:57)
[2024-07-21] MEDS: buPROPion HCl XL 150 MG TAB.ER.24H PO (08:49)
[2024-07-21] MEDS: Ascorbic Acid 250 MG TABLET PO ×2 (08:49→19:57)
[2024-07-21] MEDS: Folic Acid 1 MG TABLET PO (08:49)
[2024-07-21] MEDS: Multivitamin TABLET 1 TAB PO (08:49)
[2024-07-21] MEDS: Thiamine HCL 100 MG TABLET PO (08:49)
[2024-07-21] MEDS: Ibuprofen 600 MG TABLET PO ×2 (08:52→19:57)
[2024-07-21] MEDS: hydrOXYzine HCL 25 MG TABLET PO (08:52)
[2024-07-21 08:54] VITALS: BP 132/73; PULSE 90; RESP 18; TEMP 37.1; O2SAT 99
--- NOTE | 2024-07-21 14:20 | HO.PSYCHPN ---
Subjective Subjective Date of Service: 07/21/24 Reason For Visit: PTSD Subjective Notes: Conditional Voluntary Healthcare Proxy: No Guardianship: No Medical Problems Affecting Mental Status: No Interim History: In milieu, reports symptoms of RSV continue, voice is weak, however, pt feeling some improvement and is ready to titrate Wellbutrin. Pt to interview with [facility] on 07/22. Applications are submitted for other programs with no communication from them that they have interest in pt attending their facility. Medication Compliance: Yes Side effects from medications: No Attending Groups: No Review of Systems RSV + with active sx Medical Review of Systems: unchanged Review of Systems Review of Systems URI sx, RSV + Mental Status Exam Mental Status Exam Patient Appearance: Fatigued Patient Orientation: Person, Place, Time and Situation Level of Consciousness: Alert Patient Behavior: Talkative, Fatigued and Good Eye Contact Mood Description: Withdrawn and Depressed Affect Description: Withdrawn Patient Cognition Impaired: No Ability to Follow Directions: Good Speech Pattern: Spontaneous Speech Memory Description: Intact Hallucinations: None Delusions: Not Present Thought Process: Rumination Thought Content: positive for Circumstantial Depressive Symptoms: Increased Irritability, Changes in Appetite, Sleeping More Than Usual, Increased Fatigue and Loss of Energy Judgement: Fair Diagnostics Vital Signs (24Hr): Vital Signs - 24 hr 07/20/24 20:00 07/21/24 08:54 Temperature 98.7 F Pulse Rate 80 90 Respiratory Rate 16 18 Blood Pressure 151/84 H 132/73 Pulse Oximetry 98 99 Oxygen Delivery Method Room Air Room Air BMI result Body Mass Index 26.7 Labs 07/16/24 07:54 07/16/24 07:54 Labs: Laboratory Results - last 48 hr 07/19/24 16:06 Influenza Type A (PCR) NEGATIVE Influenza Type B (PCR) NEGATIVE RSV RNA Qual (PCR) POSITIVE A SARS-CoV-2 RNA (RT-PCR) NEGATIVE Imaging Radiology Impressions: ITS Impressions Chest X-Ray 07/19/24 15:40 IMPRESSION: No acute airspace disease. Electronically signed by: Cornelius Johns MD 07/20/2024 08:15 AM [facility] Medications Medications Current Medications Acetaminophen (Acetaminophen 325 Mg Tablet) 650 mg PO Q6H PRN PRN Reason: Headache/Pain Mild Scale (1-3) Last Admin: 07/21/24 06:37 Dose: 650 mg Al Hydroxide/Mg Hydroxide (Magnesium Hydrox/Alum Hydrox 30 Ml Oral.Susp) 30 ml PO Q6H PRN PRN Reason: Heartburn/Nausea Ascorbic Acid (Ascorbic Acid 250 Mg Tablet) 250 mg PO BID [facility] Last Admin: 07/21/24 08:49 Dose: 250 mg Benzocaine (Throat Lozenge, Medicated Lozenge) 1 lozenge MUCOUS MEM Q2H PRN PRN Reason: Sore Throat Last Admin: 07/21/24 08:52 Dose: 1 lozenge Bupropion HCl (Bupropion Hcl Xl 150 Mg Tab.Er.24h) 150 mg PO DAILY [facility] Last Admin: 07/21/24 08:49 Dose: 150 mg Folic Acid (Folic Acid 1 Mg Tablet) 1 mg PO DAILY [facility] Last Admin: 07/21/24 08:49 Dose: 1 mg Guaifenesin (Guaifenesin 100 Mg/5 Ml 5 Ml Liquid) 5 ml PO Q4H PRN PRN Reason: Cough Last Admin: 07/21/24 06:37 Dose: 5 ml Guaifenesin/Dextromethorphan (Guaifenesin Dm 600/30 1 Tab Tab.Er.12h) 1 tab PO BID PRN PRN Reason: Cough Last Admin: 07/21/24 06:37 Dose: 1 tab Hydroxyzine HCl (Hydroxyzine Hcl 25 Mg Tablet) 25 mg PO Q6H PRN PRN Reason: Anxiety Last Admin: 07/21/24 08:52 Dose: 25 mg Ibuprofen (Ibuprofen 600 Mg Tablet) 600 mg PO Q6H PRN PRN Reason: Pain, Mild (Pain Scale 1-3) Last Admin: 07/21/24 08:52 Dose: 600 mg Magnesium Hydroxide (Milk Of Magnesia 30 Ml Oral.Susp) 30 ml PO DAILY PRN PRN Reason: Constipation Mirtazapine (Mirtazapine 7.5 Mg Tablet) 3.75 mg PO BEDTIME [facility] Last Admin: 07/20/24 22:08 Dose: 3.75 mg Multivitamins/Vitamin C (Multivitamin Tablet) 1 tab PO DAILY [facility] Last Admin: 07/21/24 08:49 Dose: 1 tab Nicotine (Nicotine 21 Mg Patch.Td24) 21 mg TRANSDERMA DAILY PRN PRN Reason: smoking cessation Nicotine Polacrilex (Nicotine Polacrilex 2 Mg Gum) 4 mg BUCCAL Q2H PRN PRN Reason: Nicotine Cravings Olanzapine (Olanzapine 5 Mg Tablet) 5 mg PO TID PRN PRN Reason: agitation Last Admin: 07/19/24 13:17 Dose: 5 mg Thiamine HCl (Thiamine Hcl 100 Mg Tablet) 100 mg PO DAILY [facility] Last Admin: 07/21/24 08:49 Dose: 100 mg Trazodone HCl (Trazodone Hcl 50 Mg Tablet) 50 mg PO BEDTIME MRX1 PRN PRN Reason: Insomnia Allergies Allergies Allergy/AdvReac Type Severity Reaction Status Date / Time naltrexone Allergy Hives Verified 12/31/22 21:26 Assessment & Plan Assessment & Plan (1) MDD (major depressive disorder), recurrent episode: Status: Acute Code(s): F33.9 - Major depressive disorder, recurrent, unspecified (2) PTSD (post-traumatic stress disorder): Status: Acute Code(s): F43.10 - Post-traumatic stress disorder, unspecified (3) Alcohol abuse: Status: Acute Code(s): F10.10 - Alcohol abuse, uncomplicated (4) Cannabis abuse: Status: Acute Code(s): F12.10 - Cannabis abuse, uncomplicated Plan PTSD, Recurrent Major Depression, Alcohol, Cannabis Abuse. Plan: Admit, CV, 15 minute checks Diagnostics as needed Collateral contact Restart Wellbutrin XL 150 mg daily Restart Mirtazapine 7.5 mg hs Encourage full milieu Discharge/Aftercare planning, ?CSS transfer 07/17/2024: No changes. Continue to monitor sedation on mirtazapine. 07/18: lower remeron to 3.75mg (helping sleep but daytime sedation). If still sedate will likely need to consider another antidepressant 07/19- +RSV- sx mgt. Continue regime Program applications are pending 07/21/24- Increase Wellbutrin XL to 300 mg on 07/22/24. Reason for continued inpatient stay Substantial Risk for: med/psych decompensation Time Spent With Patient Time: Total time managing care of this patient today ____ minutes.
[2024-07-21] MEDS: Milk of Magnesia 30 ML ORAL.SUSP PO (17:00)
[2024-07-21] MEDS: Mirtazapine 7.5 MG TABLET 3.75 MG PO (19:57)
[2024-07-21 20:00] VITALS: BP 129/69; PULSE 92; RESP 16; TEMP 36.7; O2SAT 98
[2024-07-22] MEDS: Acetaminophen 325 MG TABLET 650 MG PO (05:09)
[2024-07-22] MEDS: guaiFENesin 100 MG/5 ML 5 ML LIQUID PO (05:09)
[2024-07-22] MEDS: Throat Lozenge, Medicated LOZENGE 1 LOZENGE MUCOUS MEM ×3 (05:09→11:44)
[2024-07-22 07:57] VITALS: RESP 18
[2024-07-22] MEDS: Thiamine HCL 100 MG TABLET PO (08:12)
[2024-07-22] MEDS: Folic Acid 1 MG TABLET PO (08:12)
[2024-07-22] MEDS: Ascorbic Acid 250 MG TABLET PO (08:12)
[2024-07-22] MEDS: buPROPion HCl XL 300 MG TAB.ER.24H PO (08:12)
[2024-07-22] MEDS: Multivitamin TABLET 1 TAB PO (08:12)
[2024-07-22] MEDS: Ibuprofen 600 MG TABLET PO (08:28)
[2024-07-22] MEDS: guaiFENesin DM 600/30 1 TAB TAB.ER.12H PO (08:28)
--- NOTE | 2024-07-22 09:57 | P.PNPSI_ITS ---
Subjective Subjective Reason For Visit: PTSD Diagnostics Vital Signs (24Hr): Vital Signs - 24 hr 07/21/24 20:00 07/22/24 07:57 Temperature 98.1 F Pulse Rate 92 Respiratory Rate 16 18 Blood Pressure 129/69 Pulse Oximetry 98 Oxygen Delivery Method Room Air BMI result Body Mass Index 26.7 Labs 07/16/24 07:54 07/16/24 07:54 Imaging Radiology Impressions: ITS Impressions Chest X-Ray 07/19/24 15:40 IMPRESSION: No acute airspace disease. Electronically signed by: Cornelius Johns MD 07/20/2024 08:15 AM [facility] [place] [place] Medications Medications Current Medications Acetaminophen (Acetaminophen 325 Mg Tablet) 650 mg PO Q6H PRN PRN Reason: Headache/Pain Mild Scale (1-3) Last Admin: 07/22/24 05:09 Dose: 650 mg Al Hydroxide/Mg Hydroxide (Magnesium Hydrox/Alum Hydrox 30 Ml Oral.Susp) 30 ml PO Q6H PRN PRN Reason: Heartburn/Nausea Ascorbic Acid (Ascorbic Acid 250 Mg Tablet) 250 mg PO BID [facility] Last Admin: 07/22/24 08:12 Dose: 250 mg Benzocaine (Throat Lozenge, Medicated Lozenge) 1 lozenge MUCOUS MEM Q2H PRN PRN Reason: Sore Throat Last Admin: 07/22/24 08:28 Dose: 1 lozenge Bupropion HCl (Bupropion Hcl Xl 300 Mg Tab.Er.24h) 300 mg PO DAILY [facility] Last Admin: 07/22/24 08:12 Dose: 300 mg Folic Acid (Folic Acid 1 Mg Tablet) 1 mg PO DAILY [facility] Last Admin: 07/22/24 08:12 Dose: 1 mg Guaifenesin (Guaifenesin 100 Mg/5 Ml 5 Ml Liquid) 5 ml PO Q4H PRN PRN Reason: Cough Last Admin: 07/22/24 05:09 Dose: 5 ml Guaifenesin/Dextromethorphan (Guaifenesin Dm 600/30 1 Tab Tab.Er.12h) 1 tab PO BID PRN PRN Reason: Cough Last Admin: 07/22/24 08:28 Dose: 1 tab Hydroxyzine HCl (Hydroxyzine Hcl 25 Mg Tablet) 25 mg PO Q6H PRN PRN Reason: Anxiety Last Admin: 07/21/24 08:52 Dose: 25 mg Ibuprofen (Ibuprofen 600 Mg Tablet) 600 mg PO Q6H PRN PRN Reason: Pain, Mild (Pain Scale 1-3) Last Admin: 07/22/24 08:28 Dose: 600 mg Magnesium Hydroxide (Milk Of Magnesia 30 Ml Oral.Susp) 30 ml PO DAILY PRN PRN Reason: Constipation Last Admin: 07/21/24 17:00 Dose: 30 ml Mirtazapine (Mirtazapine 7.5 Mg Tablet) 3.75 mg PO BEDTIME [facility] Last Admin: 07/21/24 19:57 Dose: 3.75 mg Multivitamins/Vitamin C (Multivitamin Tablet) 1 tab PO DAILY [facility] Last Admin: 07/22/24 08:12 Dose: 1 tab Nicotine (Nicotine 21 Mg Patch.Td24) 21 mg TRANSDERMA DAILY PRN PRN Reason: smoking cessation Nicotine Polacrilex (Nicotine Polacrilex 2 Mg Gum) 4 mg BUCCAL Q2H PRN PRN Reason: Nicotine Cravings Olanzapine (Olanzapine 5 Mg Tablet) 5 mg PO TID PRN PRN Reason: agitation Last Admin: 07/19/24 13:17 Dose: 5 mg Thiamine HCl (Thiamine Hcl 100 Mg Tablet) 100 mg PO DAILY [facility] Last Admin: 07/22/24 08:12 Dose: 100 mg Trazodone HCl (Trazodone Hcl 50 Mg Tablet) 50 mg PO BEDTIME MRX1 PRN PRN Reason: Insomnia Allergies Allergies Allergy/AdvReac Type Severity Reaction Status Date / Time naltrexone Allergy Hives Verified 12/31/22 21:26 Assessment & Plan Assessment & Plan (1) MDD (major depressive disorder), recurrent episode: Status: Acute Code(s): F33.9 - Major depressive disorder, recurrent, unspecified (2) PTSD (post-traumatic stress disorder): Status: Acute Code(s): F43.10 - Post-traumatic stress disorder, unspecified (3) Alcohol abuse: Status: Acute Code(s): F10.10 - Alcohol abuse, uncomplicated (4) Cannabis abuse: Status: Acute Code(s): F12.10 - Cannabis abuse, uncomplicated Plan PTSD, Recurrent Major Depression, Alcohol, Cannabis Abuse. Plan: Admit, CV, 15 minute checks Diagnostics as needed Collateral contact Restart Wellbutrin XL 150 mg daily Restart Mirtazapine 7.5 mg hs Encourage full milieu Discharge/Aftercare planning, ?CSS transfer 07/17/2024: No changes. Continue to monitor sedation on mirtazapine. 07/18: lower remeron to 3.75mg (helping sleep but daytime sedation). If still sedate will likely need to consider another antidepressant 07/19- +RSV- sx mgt. Continue regime Program applications are pending 07/21/24- Increase Wellbutrin XL to 300 mg on 07/22/24. Time Spent With Patient Time: Total time managing care of this patient today ____ minutes.
--- NOTE | 2024-07-22 15:12 | P.DS_ITS ---
DS: Providers Provider Date of admission: 07/15/24 18:36 Primary care physician: Unknown Physician Consults: 07/15/24 15:57 Consult to Hospitalist Routine Comment: Consulting Provider: [facility] Hospitalists Reason For Exam: admission physical DS: Diagnosis Discharge Diagnosis (1) MDD (major depressive disorder), recurrent episode: Status: Acute (2) PTSD (post-traumatic stress disorder): Status: Acute (3) Alcohol abuse: Status: Acute (4) Cannabis abuse: Status: Acute DS: Medications Discharge Medications Home Medications: Previous Rx's ?Medication ?Instructions ?Recorded ascorbic acid (vitamin C) 250 mg 250 mg PO BID #60 tabs 07/22/24 tablet benzocaine 15 mg-menthol 3.6 mg 1 argelia mucous membrane Q2H PRN Sore 07/22/24 lozenges (Sore Throat (benzocaine Throat #100 ea with menthol)) bupropion HCl 300 mg 24 hr tablet, 300 mg PO DAILY #30 tabs 07/22/24 extended release dextromethorphan-guaifenesin 30 1 tab PO BID PRN Cough #60 tabs 07/22/24 mg-600 mg tablet extended [id number] hr (Mucus DM) folic acid 1 mg tablet 1 mg PO DAILY #30 tabs 07/22/24 guaifenesin 100 mg/5 mL oral liquid 100 mg (5 mL) PO Q4H PRN Cough 07/22/24 #118 mL hydroxyzine HCl 25 mg tablet 25 mg PO BID PRN Anxiety 30 days 07/22/24 #60 tabs ibuprofen 600 mg tablet 600 mg PO Q6H PRN Pain, Mild (Pain 07/22/24 Scale 1-3) #100 tabs melatonin 3 mg tablet 9 mg (3 x 3 mg) PO BEDTIME 30 days 07/22/24 #90 tabs mirtazapine 7.5 mg tablet 3.75 mg (1/2 x 7.5 mg) PO BEDTIME 07/22/24 #15 tabs multivitamin (Daily-Edy tablet) 1 tab PO DAILY #30 tabs 07/22/24 olanzapine 5 mg tablet 5 mg PO TID PRN agitation #90 tabs 07/22/24 thiamine mononitrate (vit B1) 100 100 mg PO DAILY #30 tabs 07/22/24 mg tablet trazodone 50 mg tablet 50 mg PO BEDTIME MRX1 PRN Insomnia 07/22/24 #60 tabs Data Data Completed and Pending Completed studies during hospitalization [Text1]: 07/16/24 07/16/24 07/19/24 07:54 07:55 16:06 WBC 3.9 L RBC 4.24 L Hgb 13.0 L Hct 36.6 L MCV 86.3 MCH 30.7 MCHC 35.5 RDW 12.9 Plt Count 160 MPV 11.4 Immature Gran % (Auto) 0.3 Neut % (Auto) 28.3 L Lymph % (Auto) 59.5 H [place] % (Auto) 9.6 Eos % (Auto) 1.8 Baso % (Auto) 0.5 Lymph # (Auto) 2.3 [place] # (Auto) 0.4 Eos # (Auto) 0.1 Baso # (Auto) 0.0 Abs Immat Gran (auto) 0.01 Absolute Neuts (auto) 1.1 L Absolute Nucleated RBC 0.000 Nucleated RBC % (auto) 0.0 Sodium 138 Potassium 4.1 Chloride 106 Carbon Dioxide 23 Anion Gap 13 BUN 16 Creatinine 1.04 Estim Creat Clear Calc 97.5 Estimated GFR > 60 Random Glucose 93 Estimat Average Glucose 103 Hemoglobin A1c % 5.2 Calcium 9.1 Total Bilirubin 0.4 AST 36 ALT 25 Alkaline Phosphatase 52 C-Reactive Protein 0.14 Total Protein 6.5 Albumin 4.0 Triglycerides 84 Cholesterol 166 LDL Cholesterol, Calc 113 H HDL Cholesterol 37 L TSH 1.85 Influenza Type A (PCR) NEGATIVE Influenza Type B (PCR) NEGATIVE RSV RNA Qual (PCR) POSITIVE A SARS-CoV-2 RNA (RT-PCR) NEGATIVE 07/19/24 16:09 Throat Throat Culture - Final No Group A Beta-hemolytic Streptococci isolated. Imaging Diagnostic Imaging Impressions Chest X-Ray 07/19/24 15:40 IMPRESSION: No acute airspace disease. Electronically signed by: Cornelius Johns MD 07/20/2024 08:15 AM [facility] DS: Summary Time Spent with Patient Time attestation: Total time managing care of this patient today ____ minutes. Discharge Plan Discharge Anticipated Discharge Date/Time: 07/22/24 14:00 Patient Disposition: Xfer Inpatient Rehab Fac Discharge Diagnosis: PTSD Recurrent Major Depression Alcohol Use Disorder Cannabis Use Disorder Referrals: Vivitrol [facility]jection[facility] [Other] - 08/11/24 3:45 pm ([facility] staff will assist in walking you over to the [facility] clinic for your appointment) Physician,Unknown J [Primary Care Provider] - 1 Week Discharge Medications: New bupropion HCl 300 mg Tablet Extended Release 24 Hr 300 mg PO DAILY Qty: 30 0RF multivitamin [Daily-Edy] Tablet 1 tab PO DAILY Qty: 30 0RF trazodone 50 mg Tablet 50 mg PO BEDTIME MRX1 PRN (Reason: Insomnia) Qty: 60 1RF olanzapine 5 mg Tablet 5 mg PO TID PRN (Reason: agitation) Qty: 90 0RF guaifenesin 100 mg/5 mL Liquid 100 mg PO Q4H PRN (Reason: Cough) Qty: 118 0RF ascorbic acid (vitamin C) 250 mg Tablet 250 mg PO BID Qty: 60 0RF folic acid 1 mg Tablet 1 mg PO DAILY Qty: 30 0RF ibuprofen 600 mg Tablet 600 mg PO Q6H PRN (Reason: Pain, Mild (Pain Scale 1-3)) Qty: 100 0RF Mucus DM 30-600 mg Tablet Extended Release 12 Hr 1 tab PO BID PRN (Reason: Cough) Qty: 60 0RF mirtazapine 7.5 mg Tablet 3.75 mg PO BEDTIME Qty: 15 0RF thiamine mononitrate (vit B1) 100 mg Tablet 100 mg PO DAILY Qty: 30 0RF Sore Throat (benzocaine-menth) 15-3.6 mg Lozenge 1 argelia mucous membrane Q2H PRN (Reason: Sore Throat) Qty: 100 0RF Continued melatonin 3 mg tablet 9 mg PO BEDTIME 30 Days Qty: 90 0RF hydroxyzine HCl 25 mg Tablet 25 mg PO BID PRN (Reason: Anxiety) 30 Days Qty: 60 0RF Discontinued trazodone 50 mg Tablet 50 mg PO BEDTIME PRN (Reason: Insomnia) 30 Days Qty: 30 0RF ibuprofen 600 mg Tablet 600 mg PO BID PRN (Reason: Pain, Moderate(Pain Scale 4-6)) 30 Days Qty: 60 0RF bupropion HCl 150 mg tablet extended release 24 hr 150 mg PO DAILY 30 Days Qty: 30 0RF Discharge Orders: Discharge Order (Routine); Ordered 07/22/24 Ordered By: Carlene Potter Diet: Advance to usual diet Activity on Discharge: As tolerated Stand Alone Forms: Patient Portal Discharge page, Community Support Print Language: Serbian Care Plan Goals: Mood and Behavioral Stabilization Abstinence from Substances Health Concerns: Mood and Behavioral Stabilization Abstinence from Substances Plan of Treatment: Pt will discharge today to [facility] for ongoing treatment Attend scheduled appointments Take medications as directed We have sent PRN medications for symptom management of RSV to [facility] along with your scheduled medications. Continue to connect with others and discuss your feelings of grief Assessment: No SI/HI/AH/VH. No sx of acute abram or psychosis Recovering from RSV Discharge Date/Time: 07/22/24 14:29
== END 2024-07-22 14:29 | DRG 751 ==
PROVIDERS: Admitting Provider Psychiatry & Neurology Psychiatry; Visit Provider Clinical Nurse Specialist Psychiatric/Mental Health, Adult
DX: F33.9 Major depressive disorder, recurrent, unspecified (principal); F10.10 Alcohol abuse, uncomplicated; F12.10 Cannabis abuse, uncomplicated; F43.10 Post-traumatic stress disorder, unspecified; Z63.4 Disappearance and death of family member; Z87.891 Personal history of nicotine dependence; Z79.899 Other long term (current) drug therapy
CPT/HCPCS: 0241U; 36415; 71046; 80053; 80061; 83036; 84443; 85025; 86140; 87070

== ENCOUNTER → 2024-07-15 18:36 | Outpatient (BNV) | payer OTHER, SELFPAY | PROVIDERS: Admitting Provider Psychiatry & Neurology Psychiatry; Visit Provider Psychiatry & Neurology Psychiatry | DX: F33.2 Major depressive disorder, recurrent severe without psychotic features (principal); F43.11 Post-traumatic stress disorder, acute; F10.10 Alcohol abuse, uncomplicated; F12.10 Cannabis abuse, uncomplicated | CPT/HCPCS: 99231 ==

== ENCOUNTER → 2024-07-15 18:36 | Outpatient (BNV) | payer MEDICAID, SELFPAY | PROVIDERS: Admitting Provider Psychiatry & Neurology Psychiatry; Visit Provider Student in an Organized Health Care Education/Training Program | DX: Z00.8 Encounter for other general examination (principal) | CPT/HCPCS: 99222 ==

== ENCOUNTER → 2024-07-15 18:36 | Outpatient (BNV) | payer OTHER, SELFPAY | PROVIDERS: Admitting Provider Psychiatry & Neurology Psychiatry; Visit Provider Psychiatry & Neurology Psychiatry | DX: F33.2 Major depressive disorder, recurrent severe without psychotic features (principal); F43.11 Post-traumatic stress disorder, acute; F10.10 Alcohol abuse, uncomplicated; F12.10 Cannabis abuse, uncomplicated | CPT/HCPCS: 99231; 99232 ==